=== PATIENT | female | born 1930 | race Caucasian/White ===

== ENCOUNTER → 2018-02-12 | Outpatient (CLI) | payer MEDICARE, OTHER ==
[2014-10-12 17:35] VITALS: BP 128/79
[~2018-02-12] MED LIST: ACET-10 PO; ACET325T21 PO; ALPR1TAB6 PO; CHOL100013 PO; CLOB15CR2 TP; CLON1TAB4 PO; CLOT15CR5 TP; CYAN10002 IM; DESO15OI3 TP; FLUO20CA8 PO; LEVO112T4 PO; LISI1TAB7 PO; MECL12.52 PO; METF500T5 PO; OMEP20TA63 PO; POTA10TA12 PO; PRAV20TA2 PO; TRAM50TA PO
[2018-02-12] MEDS: IOHEXOL 240 MG/ML 50ML VIAL. PO ONE (14:15)
[2018-02-12] MEDS: IOHEXOL 300 MG/ML 100ML VIAL. IV ONE (15:11)
--- NOTE | 2018-02-12 15:33 | RAD ---
CT of the abdomen and pelvis with IV and oral contrast 02/12/2018 INDICATION: Abdominal pain. History of diverticulitis. COMPARISON STUDY: CT of the abdomen and pelvis with contrast April 09, 2014. TECHNIQUE: Multidetector CT imaging of the abdomen and pelvis was obtained following the administration of IV and oral contrast. FINDINGS: Visualized lung bases demonstrate no acute abnormality. A large hiatal hernia is similar to comparison exam. Liver, gallbladder, and spleen are unremarkable. Adrenal glands are unremarkable. The pancreas is atrophic in appearance but otherwise unremarkable. The appearance is unchanged. Kidneys are unremarkable in appearance. No evidence of hydronephrosis or obstructive uropathy is seen. There is no evidence of bowel obstruction. Extensive diverticulosis involving the sigmoid colon and rectum is again seen. Diverticulosis involving the descending colon is again noted. Very minimal pericolonic inflammatory change appears to be present at the junction of the descending colon and sigmoid colon. A very mild diverticulitis could produce this appearance. What appears to be a appendiceal stump is seen. The bladder is unremarkable. Prior hysterectomy noted. No significant free fluid or free air is seen in the abdomen or pelvis. S-shaped scoliosis of the thoracolumbar spine is seen with associated degenerative changes. Chronic pubic rami and acetabular fractures noted on the left. IMPRESSION: 1. Very mild pericolonic inflammatory change at the junction of the descending colon sigmoid colon. Very mild acute diverticulitis can produce this appearance. 2. Large hiatal hernia CT DOSING PQRS STATEMENT: One or more of the following individualized dose reduction techniques were utilized for this examination: 1. Automated exposure control 2. Adjustment of the mA and/or kV according to patient size 3. Use of iterative reconstruction technique Electronically signed by: Diego Garcia MD (02/12/2018 3:30 PM) [facility]
== END | disposition home or self-care (01) ==
LOC: CT 13:59
PROVIDERS: ATTEND Family Medicine Geriatric Medicine
DX: K44.9 Diaphragmatic hernia without obstruction or gangrene (principal); M41.85 Other forms of scoliosis, thoracolumbar region; I10 Essential (primary) hypertension; E78.5 Hyperlipidemia, unspecified; E03.9 Hypothyroidism, unspecified; Z90.710 Acquired absence of both cervix and uterus
CPT/HCPCS: 74177; Q9966; Q9967

== ENCOUNTER 2018-07-15 22:00 | Inpatient (IN) | payer MEDICARE, OTHER ==
[~2018-07-15] VITALS: Ht 152.4 cm; Wt 70.4 kg
[~2018-07-15 22:00] MED LIST changes: +CLON1TAB11 PO; -CLON1TAB4 PO; +METF500T16 PO; -METF500T5 PO
[2018-07-15] MEDS ORDERED: IV NORMAL SALINE 1000ML BAG 1,000 ML IV ONE (22:30)
[2018-07-15] MEDS ORDERED: METOCLOPRAMIDE HCL 10 MG/2 ML VIAL. IV ONE (22:30)
[2018-07-15 22:52] LABS: CALCIUM 9.8 mg/dL (8.5-10.1); CREATININE 1.5 mg/dL (0.6-1.0); POTASSIUM 4.4 mmol/L (3.5-5.1)
[2018-07-15 22:57] LABS: ALBUMIN 3.5 g/dL (3.4-5.0); ALBUMIN/GLOBULIN RATIO 0.8 (1.0-1.7); TOTAL BILIRUBIN 0.3 mg/dL (0.2-1.0); TOTAL PROTEIN 7.8 g/dL (6.4-8.2)
[2018-07-15 23:09] LABS: BILIRUBIN,URINE SMALL (NEG); CLARITY,URINE CLEAR; NITRITE,URINE NEGATIVE (NEG); PROTEIN,URINE NEGATIVE (NEG-TRACE); UROBILINOGEN,URINE 0.2 mg/dL (0.2 mg/dL)
[2018-07-15 23:13] LABS: COLOR,URINE DK YELLOW
[2018-07-15 23:16] LABS: BACTERIA,URINE 0 /HPF (0-FEW); RBC,URINE OCC /HPF (0-2); WBC,URINE 0 /HPF (0-4)
[2018-07-15 23:17] LABS: HYALINE CASTS, URINE MODERATE /HPF
--- NOTE | 2018-07-15 23:40 | RAD ---
CT abdomen and pelvis without contrast PQRS statement: CT scans at this facility use dose reduction including either automated exposure control, iterative reconstructions, and /or weight based radiation dosing via mA and kV modification when appropriate to reduce radiation dose to as low as reasonably achievable. HISTORY: Vomiting, diarrhea. History of diverticulitis. COMPARISON: CT abdomen and pelvis February 12, 2018. TECHNIQUE: Helical noncontrast imaging of the abdomen and pelvis was acquired. Abdomen findings: Hiatal hernia of the upper stomach. There is abnormal fluid dilation of the stomach, duodenum and upper abdominal jejunum with relative transition point in the right midabdomen which could indicate a small bowel obstruction with mild collapse of the mid to distal small bowel. Appendix is not present could be surgically absent no pericecal inflammation evident. Scattered colonic diverticuli. Fatty pancreas. Mild prominence of the common bile duct, stable. Adrenals, spleen, liver and gallbladder are unremarkable. No abdominal fluid. Lumbar scoliosis and disc disease. Multilevel lumbar spinal canal stenoses. Tiny 1 mm left renal calculus. Right kidney is unremarkable. Pelvis findings: Old healed left pelvic fractures again noted. Bladder, rectum unremarkable. Hysterectomy. No pelvic fluid. IMPRESSION: 1. Small bowel obstruction transition point at the mid abdomen likely due to an adhesion. 2. Hilar hernia of the upper stomach. 3. Nonobstructing 1 mm left renal calculus. 4. Colonic diverticulosis without inflammatory change. Electronically signed by: Cam Narayan MD (07/15/2018 11:36 PM) [facility]
[2018-07-15 23:54] LABS: BASO % 0 % (0-3); EOS # 0.1 x10^3/uL (0.0-0.7); EOS % 1 % (0-3); HEMATOCRIT 32.7 % (36.0-47.0); HEMOGLOBIN 10.5 g/dL (12.0-15.5); LYMPH # 0.3 x10^3/uL (1.0-4.8); LYMPH % 3 % (24-48); MEAN CORPUSCULAR HEMOGLOBIN 29 pg (25-35); MEAN CORPUSCULAR HGB CONC 32 g/dL (31-37); MEAN CORPUSCULAR VOLUME 91 fL (79-100); MONO # 0.6 x10^3/uL (0.0-1.1); MONO % 6 % (0-9); NEUT # 9.2 x10^3uL (1.8-7.7); NEUT % 90 % (31-73); PLATELET COUNT 328 x10^3/uL (140-400); RED BLOOD COUNT 3.61 x10^6/uL (3.50-5.40); RED CELL DISTRIBUTION WIDTH 18.9 % (11.5-14.5); WHITE BLOOD COUNT 10.2 x10^3/uL (4.0-11.0)
[2018-07-16] VITALS (7 sets, daily range): BP systolic 83–118; BP diastolic 30–52
--- NOTE | 2018-07-16 00:48 | PHYS DOC ---
Past Medical History Past Medical History: Diabetes-Type II, Diverticulitis Past Surgical History: Hysterectomy Alcohol Use: None Adult General Chief Complaint Chief Complaint: NAUSEA/VOMITING/DIARRHA HPI HPI Patient is a 87 year old female who presents with a sudden onset of intractable nausea and vomiting this evening. The patient states that her symptoms started approximately 7 PM. She does have a history of diverticulitis. She denies fever. She does also have a history of an ileus that occurred approximately last October following a surgery. She denies any recent surgeries. Review of Systems Review of Systems Constitutional: Denies fever or chills [] Eyes: Denies change in visual acuity, redness, or eye pain [] HENT: Denies nasal congestion or sore throat [] Respiratory: Denies cough or shortness of breath [] Cardiovascular: No additional information not addressed in HPI [] GI: See history of present illness : Denies dysuria or hematuria [] Musculoskeletal: Denies back pain or joint pain [] Integument: Denies rash or skin lesions [] Neurologic: Denies headache, focal weakness or sensory changes [] Endocrine: Denies polyuria or polydipsia [] All other systems were reviewed and found to be within normal limits, except as documented in this note. Current Medications Current Medications Current Medications Medications (Trade) Dose Ordered Sig/Gabe Start Time Stop Time Status Last Admin Dose Admin Metoclopramide HCl (Reglan Vial) 10 mg 1X ONCE 07/15/18 22:30 07/15/18 22:31 DC 07/15/18 22:47 10 MG Sodium Chloride 1,000 ml @ 1,000 mls/hr 1X ONCE 07/15/18 22:30 07/15/18 23:29 DC 07/15/18 22:49 1,000 MLS/HR Allergies Allergies Allergies Coded Allergies Type Severity Reaction Last Updated Verified codeine Allergy Intermediate Itching 10/12/14 Yes Physical Exam Physical Exam Constitutional: Well developed, well nourished, no acute distress, non-toxic appearance. [] HENT: Normocephalic, atraumatic, bilateral external ears normal, oropharynx moist, no oral exudates, nose normal. [] Eyes: PERRLA, EOMI, conjunctiva normal, no discharge. [] Neck: Normal range of motion, no tenderness, supple, no stridor. [] Cardiovascular:Heart rate regular rhythm, no murmur [] Lungs & Thorax: Bilateral breath sounds clear to auscultation [] Abdomen: Bowel sounds hypoactive, soft, diffuse tenderness, no masses, no pulsatile masses. [] Skin: Warm, dry, no erythema, no rash. [] Back: No tenderness, no CVA tenderness. [] Extremities: No tenderness, no cyanosis, no clubbing, ROM intact, no edema. [] Neurologic: Alert and oriented X 3, normal motor function, normal sensory function, no focal deficits noted. [] Psychologic: Affect normal, judgement normal, mood normal. [] Current Patient Data Lab Values Laboratory Tests Test 07/15/18 22:35 07/15/18 22:55 07/15/18 23:40 Sodium Level 140 mmol/L (136-145) Potassium Level 4.4 mmol/L (3.5-5.1) Chloride Level 105 mmol/L (98-107) Carbon Dioxide Level 26 mmol/L (21-32) Anion Gap 9 (6-14) Blood Urea Nitrogen 42 mg/dL (7-20) H Creatinine 1.5 mg/dL (0.6-1.0) H Estimated GFR (Cockcroft-Gault) 33.0 BUN/Creatinine Ratio 28 (6-20) H Glucose Level 144 mg/dL (70-99) H Calcium Level 9.8 mg/dL (8.5-10.1) Total Bilirubin 0.3 mg/dL (0.2-1.0) Aspartate Amino Transferase (AST) 18 U/L (15-37) Alanine Aminotransferase (ALT) 23 U/L (14-59) Alkaline Phosphatase 113 U/L (46-116) Total Protein 7.8 g/dL (6.4-8.2) Albumin 3.5 g/dL (3.4-5.0) Albumin/Globulin Ratio 0.8 (1.0-1.7) L Urine Collection Type U cath Urine Color Dk yellow Urine Clarity Clear Urine pH 5.0 Urine Specific [place] >=1.030 Urine Protein Negative mg/dL (NEG-TRACE) Urine Glucose (UA) Negative mg/dL (NEG) Urine Ketones (Stick) Trace mg/dL (NEG) Urine Blood Negative (NEG) Urine Nitrite Negative (NEG) Urine Bilirubin Small (NEG) Urine Urobilinogen Dipstick 0.2 mg/dL (0.2 mg/dL) Urine Leukocyte Esterase Negative (NEG) Urine RBC Occ /HPF (0-2) Urine WBC 0 /HPF (0-4) Urine Transitional Epithelial Cells Occ /LPF Urine Bacteria 0 /HPF (0-FEW) Urine Hyaline Casts Moderate /HPF Urine Mucus Mod /LPF White Blood Count 10.2 x10^3/uL (4.0-11.0) Red Blood Count 3.61 x10^6/uL (3.50-5.40) Hemoglobin 10.5 g/dL (12.0-15.5) L Hematocrit 32.7 % (36.0-47.0) L Mean Corpuscular Volume 91 fL (79-100) Mean Corpuscular Hemoglobin 29 pg (25-35) Mean Corpuscular Hemoglobin Concent 32 g/dL (31-37) Red Cell Distribution Width 18.9 % (11.5-14.5) H Platelet Count 328 x10^3/uL (140-400) Neutrophils (%) (Auto) 90 % (31-73) H Lymphocytes (%) (Auto) 3 % (24-48) L Monocytes (%) (Auto) 6 % (0-9) Eosinophils (%) (Auto) 1 % (0-3) Basophils (%) (Auto) 0 % (0-3) Neutrophils # (Auto) 9.2 x10^3uL (1.8-7.7) H Lymphocytes # (Auto) 0.3 x10^3/uL (1.0-4.8) L Monocytes # (Auto) 0.6 x10^3/uL (0.0-1.1) Eosinophils # (Auto) 0.1 x10^3/uL (0.0-0.7) Basophils # (Auto) 0.0 x10^3/uL (0.0-0.2) Platelet Estimate Pending Laboratory Tests 07/15/18 23:40 Laboratory Tests 07/15/18 22:35 EKG EKG [] Radiology/Procedures Radiology/Procedures []PATIENT: HUSEYIN LAYCOUNT: [id number]#: [id number] : 1930 LOCATION: ER AGE: 87 SEX: F EXAM STATUS: REG ER ORD. PHYSICIAN: LUCINDA MONCADA APRN REASON: diarrhea, vomiting, hx diverticulitis PROCEDURE: CT ABDOMEN PELVIS WO CONTRAST CT abdomen and pelvis without contrast PQRS statement: CT scans at this facility use dose reduction including either automated exposure control, iterative reconstructions, and /or weight based radiation dosing via mA and kV modification when appropriate to reduce radiation dose to as low as reasonably achievable. HISTORY: Vomiting, diarrhea. History of diverticulitis. COMPARISON: CT abdomen and pelvis February 12, 2018. TECHNIQUE: Helical noncontrast imaging of the abdomen and pelvis was acquired. Abdomen findings: Hiatal hernia of the upper stomach. There is abnormal fluid dilation of the stomach, duodenum and upper abdominal jejunum with relative transition point in the right midabdomen which could indicate a small bowel obstruction with mild collapse of the mid to distal small bowel. Appendix is not present could be surgically absent no pericecal inflammation evident. Scattered colonic diverticuli. Fatty pancreas. Mild prominence of the common bile duct, stable. Adrenals, spleen, liver and gallbladder are unremarkable. No abdominal fluid. Lumbar scoliosis and disc disease. Multilevel lumbar spinal canal stenoses. Tiny 1 mm left renal calculus. Right kidney is unremarkable. Pelvis findings: Old healed left pelvic fractures again noted. Bladder, rectum unremarkable. Hysterectomy. No pelvic fluid. IMPRESSION: 1. Small bowel obstruction transition point at the mid abdomen likely due to an adhesion. 2. Hilar hernia of the upper stomach. 3. Nonobstructing 1 mm left renal calculus. 4. Colonic diverticulosis without inflammatory change. Electronically signed by: Antonio Narayan MD (07/15/2018 11:36 PM) [facility] DICTATED and SIGNED BY: ANTONIO NARAYAN MD DATE: 07/15/18 233 Course & Med Decision Making Course & Med Decision Making Pertinent Labs and Imaging studies reviewed. (See chart for details) []An NG tube is in place in the emergency department. The patient has been given Reglan and fluids in the emergency department and states that she is feeling better. She will be admitted to Dr. Carter's service. Dr. Valencia, with surgery, was consulted in the care of this patient. Dragon Disclaimer Dragon Disclaimer This electronic medical record was generated, in whole or in part, using a voice recognition dictation system. Departure Departure Impression: Primary Impression: Small bowel obstruction Disposition: ADMITTED INPATIENT Admitting Physician: Sunny Carter Condition: GOOD Referrals: JUANI GARIBAY APRN (PCP) LUCINDA MONCADA APRN Jul 16, 2018 00:48
[2018-07-16] MEDS ORDERED: ONDANSETRON PF 4 MG/2 ML VIAL. IV PRN (01:00)
[2018-07-16] MEDS ORDERED: fentaNYL PF VIAL 100 MCG/2 ML VIAL IV PRN (01:00)
[2018-07-16] MEDS ORDERED: BENZOCAINE ONE 20% MUCOSAL SPRAY. MM (02:30)
[2018-07-16] MEDS: IV NORMAL SALINE 1000ML BAG 1,000 ML IV SCH ×4 (04:00→19:56)
--- NOTE | 2018-07-16 04:00 | RAD ---
AP abdomen x-ray HISTORY: Nasogastric tube placement. FINDINGS: Lung bases unremarkable. Nasogastric tube tip in midthoracic esophagus region. Prominent gaseous distention of the stomach. Relatively gasless abdomen. Right flank outside the [id number]. Lumbar scoliosis. IMPRESSION: Nasogastric tube projects at the radiographic region of the mid thoracic esophagus, should be advanced the stomach. Advancement of the tube 20 cm should reach the stomach adequately. Electronically signed by: Cam Narayan MD (07/16/2018 3:55 AM) [facility]
[2018-07-16 05:17] LABS: % BANDS 15 % (0-9); % LYMPHS 5 % (24-48); % MONOS 3 % (0-10); % SEGS 77 % (35-66)
[2018-07-16 05:18] LABS: ANISOCYTOSIS SLIGHT; PLT ESTIMATE ADEQUATE (ADEQUATE); POLYCHROMASIA SLIGHT
[2018-07-16] MEDS ORDERED: TOLT2CAP PO (05:32)
[2018-07-16] MEDS ORDERED: RANI150T2 PO (05:32)
[2018-07-16] MEDS ORDERED: FERR325T3 PO (05:32)
[2018-07-16] MEDS ORDERED: ACET500T68 PO (05:32)
[2018-07-16] MEDS ORDERED: MULT-503 PO (05:32)
[2018-07-16] MEDS ORDERED: MELA3TAB2 PO (05:32)
[2018-07-16] MEDS ORDERED: MIRT15TA3 PO (05:32)
[2018-07-16] MEDS ORDERED: CLON0.5T11 PO ×2 (05:32)
[2018-07-16] MEDS ORDERED: LEVO100T5 PO (05:32)
--- NOTE | 2018-07-16 06:02 | NUR ---
DUE TO NG TUBE BEING PRESENT IN L NARE WAS ONLY ABLE TO OBTAIN MRSA SWAB FROM R NARE.
--- NOTE | 2018-07-16 06:03 | NUR ---
UPON ARRIVAL TO [facility] L NG TUBE WAS AT 32CM INSTEAD OF THE 44CM THAT WAS REPORTED FROM THE ER, CALLED TO VERIFY WITH ER THAT NG TUBE HAD NOT BEEN RE-ADJUSTED ON PURPOSE, ER HAD NOT MOVED NG TUBE ON PURPOSE, WAS TOLD TO RE-ADVANCE NG TUBE TO 44CM AND RECHECK KUB X-RAY TO VERIFY PLACEMENT. NG TUBE PLACED AND MARKED AT 44CM AND REINFORCED WITH NG CRAVEN ON NOSE IN THE L NARE. KUB RESULTS STILL NEED TO BE READ AT THIS TIME, WILL HOOK TO SUCTION ONCE VERIFICATION IS NOTED. Addendum: 07/16/18 at 0800 by NINO MENG RN ALSO UPON ARRIVAL NOTICED THAT NG TUBE WAS NOT SECURED TO NOSE VERY WELL AND WAS FREELY MOVING AROUND. PT HAD TAPE ON NOSE AND AROUND TUBE BUT WAS NOT SECURED TO THE TUBE, STICKY PART WAS NOT ATTACHED CORRECTLY.
--- NOTE | 2018-07-16 06:15 | RAD ---
AP abdomen x-ray COMPARISON: AP abdomen x-ray July 16, 2018. HISTORY: Nasogastric tube placement. FINDINGS: There is mild elevation of the left diaphragm and gas within the gastric fundus. Lung bases unremarkable. There is a nasogastric tube the tip of which projects just beneath the medial left diaphragm overlapping the gaseous distended gastric fundus as well as the aerated left lower lobe, based on this single projection it is uncertain if this is within the aerated portion of the gastric fundus or if this could be within the left lower lobe bronchus. Further advancement of the tube into the stomach for verification of gastric placement would be of benefit. IMPRESSION: Nasogastric tube as described above. These results were called to patient's fifth floor nurse Parris at 6:00 AM July 16, 2018. Electronically signed by: Cam Narayan MD (07/16/2018 6:10 AM) [facility]
--- NOTE | 2018-07-16 06:27 | NUR ---
RECEIVED CALL FROM RADIOLOGIST, SEE KUB REPORT, ADVANCED L NARE NG TUBE TO 50CM, REORDERED STAT KUB TO VERIFY PLACEMENT
--- NOTE | 2018-07-16 07:26 | RAD ---
Examination: Frontal view of the abdomen HISTORY: History of NG tube placement COMPARISON: Same day exam FINDINGS: The NG tube projects under moderately elevated left hemidiaphragm similar to prior exam. On this radiograph it is not possible to differentiate in the NG tube is within the stomach or in the left lower lobe bronchus. Paucity of gas in the abdomen limits evaluation of the small bowel. Lumbar levoscoliosis. IMPRESSION: The NG tube projects under moderately elevated left hemidiaphragm similar to prior exam. On this radiograph it is not possible to differentiate in the NG tube is within the stomach or in the left lower lobe bronchus. Recommend cross-sectional imaging with CT to determine if the NG tube is within the stomach or in the left lower lobe bronchus. Electronically signed by: Jose Luis Shin MD (07/16/2018 7:21 AM) [facility]
--- NOTE | 2018-07-16 07:51 | NUR ---
THIRD KUB WAS STILL INCONCLUSIVE ON PLACEMENT OF NG TUBE AT 50CM, DR. REYEZ NOTIFIED OF NOT BEING ABLE TO VERIFY PLACEMENT OF NG TUBE FOR THE THIRD TIME, HE STATED THAT HE WANTED TO SEE THE PATIENT THIS SMORNING BEFORE DECIDING ON PLACING ANOTHER NG TUBE.
[2018-07-16] MEDS: metroNIDAZOLE 500 MG TABLET PO SCH ×2 (11:00→22:00)
--- NOTE | 2018-07-16 11:09 | NUR ---
SW following for discharge planning. Discussed with RN, pt is from [facility]. Pt is waiting to see the surgeon. SW will continue to follow.
--- NOTE | 2018-07-16 11:10 | HP ---
ADMIT DATE: 07/16/2018 CHIEF COMPLAINT: Nausea, vomiting and abdominal pain. HISTORY OF PRESENT ILLNESS: The patient is a pleasant 87-year-old female who states she has a history of diverticulitis. She presented to the ER with abdominal pain, some nausea, vomiting and diarrhea that has been occurring for a couple of days, rated at 9/10, worse with food. She took some home meds that did not seem to work. She has some crampiness in the lower quadrants. We did imaging study of her abdomen. It shows a possible small-bowel obstruction. I have discussed the case with the ER physician. We are going to admit the patient and consult General Surgery and I am going to give her some IV Flagyl and Levaquin because I suspect she may have some colitis as well. PAST MEDICAL HISTORY: Previous diverticulitis and colitis, hypertension, hysterectomy, diabetes, insomnia, hyperlipidemia, arthritis, depression, anxiety, vertigo, GERD and hypothyroidism. ALLERGIES: CODEINE. FAMILY HISTORY: Coronary artery disease. SOCIAL HISTORY: She does not drink, smoke or take drugs. MEDICATIONS: Reviewed. She is on 19 home meds including iron, pravastatin, lisinopril, Ultram, Tylenol, clonazepam, fluoxetine, mirtazapine, potassium, meclizine, ranitidine, Synthroid, Detrol and vitamins. REVIEW OF SYSTEMS: GENERAL: No history of weight change, weakness or fevers. SKIN: No bruising, hair changes or rashes. EYES: No blurred, double or loss of vision. NOSE AND THROAT: No history of nosebleeds, hoarseness or sore throat. HEART: No history of palpitations, chest pain or shortness of breath on exertion. LUNGS: Denies cough, hemoptysis, wheezing or shortness of breath. GASTROINTESTINAL: She complains of lower abdominal pain. GENITOURINARY: No history of frequency, urgency, hesitancy or nocturia. NEUROLOGIC: Denies history of numbness, tingling, tremor or weakness. PSYCHIATRIC: No history of panic, anxiety or depression. ENDOCRINE: No history of heat or cold intolerance, polyuria or polydipsia. EXTREMITIES: Denies muscle weakness, joint pain, pain on walking or stiffness. PHYSICAL EXAMINATION: VITAL SIGNS: Temperature afebrile, pulse 80, respirations 18, blood pressure 106/52 and O2 sat 96%. GENERAL: She is alert, cooperative and complaining of some pain. HEART: Normal S1 and S2. LUNGS: Clear. ABDOMEN: Soft and tender in the lower quadrants. EXTREMITIES: Trace edema. SKIN: No rash. ENDOCRINE: No thyromegaly. LYMPHATICS: No cervical nodes. HEMATOPOIETIC: No bruising. PSYCHIATRIC: She is stable. LABORATORY DATA: Hemoglobin is 10.5. Electrolytes are normal other than a BUN of 42 and creatinine 1.5. Urinalysis is essentially normal other than a small amount of bilirubin and moderate hyaline cast. ASSESSMENT AND PLAN: Small bowel obstruction and clinical colitis, azotemia, acute renal failure and anemia. The patient has been admitted. I am starting IV Flagyl, IV Levaquin, consult GI, consult Nephrology, home meds, PT, OT and frequent labs. PROGNOSIS: Guarded. APRIL MEZA DO DR: KAILEY/charley JOB#: [id number] / [id number]
--- NOTE | 2018-07-16 12:18 | PDOC2 ---
DHEERAJ MOORE DIRECTOR OF CHANNEL MARKETING 07/16/18 1218: CONSULT Date of Consult Date of Consult DATE: 07/16/18 TIME: 12:12 Reason for Consult Reason for Consult: sbo Referring Physician Referring Physician: ER Identification/Chief Complaint Chief Complaint vomiting Source Source: Chart review, Patient History of Present Illness Reason for Visit: Acute onset vomiting and diarrhea yesterday. She does live in an assisted living. + chills at home. Currently pain minimal, no further emesis or diarrhea Past Medical History Cardiovascular: HTN, Hyperlipidemia GI: Diverticulosis, GERD Psych: Anxiety Musculoskeletal: Osteoarthritis Endocrine: Diabetes, Hypothyroidism Past Surgical History Past Surgical History: Hysterectomy, Other (meckel diverticulectomy ) Family History Family History: Other Social History No ALCOHOL: none Drugs: None Current Problem List Problem List Problems Medical Problems: (1) Small bowel obstruction Status: Acute Current Medications Current Medications Current Medications Sodium Chloride 1,000 ml @ 1,000 mls/hr 1X ONCE IV Last administered on at 22:49; Start 07/15/18 at 22:30; Stop 07/15/18 at 23:29; Status DC Metoclopramide HCl (Reglan Vial) 10 mg 1X ONCE IV Last administered on at 22:47; Start 07/15/18 at 22:30; Stop 07/15/18 at 22:31; Status DC Ondansetron HCl (Zofran) 4 mg PRN Q8HRS PRN IV NAUSEA/VOMITING 1ST CHOICE Last administered on 07/16/18at 02:17; Start 07/16/18 at 01:00; Stop 07/16/18 at 10:51; Status DC Fentanyl Citrate (Fentanyl 2ml Vial) 50 mcg PRN Q1HR PRN IV SEVERE PAIN; Start 07/16/18 at 01:00; Stop 07/17/18 at 00:59 Sodium Chloride 1,000 ml @ 125 mls/hr Q8H IV Last administered on 07/16/18at 04: 00; Start 07/16/18 at 01:00; Stop 07/17/18 at 00:59 Benzocaine (Hurricaine One) 1 spray 1X ONCE MM Last administered on 07/16/18at 01:58; Start 07/16/18 at 02:30; Stop 07/16/18 at 02:31; Status DC Metronidazole (Flagyl) 500 mg Q8HRS PO ; Start 07/16/18 at 11:00 Levofloxacin/ Dextrose 100 ml @ 100 mls/hr Q24H IV Last administered on at 12:04; Start 07/16/18 at 11:00 Active Scripts Active Reported Clonazepam 0.5 Mg Tablet 1 Tab PO DAILY PRN Detrol La (Tolterodine Tartrate) 2 Mg Cap.er.24h 2 Mg PO BID Thera-M (Multivits,Th W-Fe,Other Min) 1 Each Tablet 1 Each PO DAILY Ranitidine Hcl 150 Mg Tablet 150 Mg PO DAILY Mirtazapine 15 Mg Tablet 1 Tab PO QHS Melatonin 3 Mg Tablet 5 Mg PO HS Ferrous Sulfate 325 Mg Tablet.dr 325 Mg PO DAILY Clonazepam 0.5 Mg Tablet 1 Tab PO HS Acetaminophen 500 Mg Tablet 2 Tab PO BID Levothyroxine Sodium 100 Mcg Tablet 1 Tab PO DAILY Clonazepam 1 Mg Tablet 1 Tab PO DAILY Vitamin D (Cholecalciferol (Vitamin D3)) 1,000 Unit Capsule 1 Cap PO DAILY Potassium Chloride 10 Meq Capsule.er 1 Cap PO DAILY Lisinopril-Hctz 20-25 Mg Tab (Lisinopril/Hydrochlorothiazide) 1 Each Tablet 1 Tab PO DAILY Pravastatin Sodium 20 Mg Tablet 1 Tab PO QHS Fluoxetine Hcl 20 Mg Capsule 3 Cap PO HS Meclizine Hcl 12.5 Mg Tablet 1 Tab PO TID PRN Tramadol Hcl 50 Mg Tablet 50 Mg PO Q8HRS PRN Cyanocobalamin Injection (Cyanocobalamin (Vitamin B-12)) 1,000 Mcg/1 Ml Vial 1 Ml IM QMONTH Allergies Allergies: Coded Allergies: codeine (Verified Allergy, Intermediate, Itching, 10/12/14) ROS General: YES: Fatigue; No: Other (fevers) PSYCHOLOGICAL ROS: No: Anxiety, Depression Eyes: No Blurry vision, No Double vision HEENT: No: Heacaches, Sore Throat Hematological and Lymphatic: No: Bleeding Problems, Blood Clots Respiratory: No: Cough, Shortness of breath Cardiovascular: No Chest Pain, No Palpitations Gastrointestinal: Yes Other (see hpi) Genitourinary: No Dysuria, No Hematuria Musculoskeletal: No Joint Pain, No Muscle Pain Neurological: No Confusion, No Impaired Coord/balance Skin: No Pruritus, No Rash Physical Exam General: Alert, Oriented X3, Cooperative, No acute distress HEENT: PERRLA, Mucous membr. moist/pink Lungs: Clear to auscultation, Normal air movement Heart: Regular rate, Normal S1, Normal S2, No murmurs Abdomen: Soft, Other Extremities: No clubbing, No cyanosis Skin: No rashes, No breakdown Neuro: Normal speech, Strength at 5/5 X4 ext Psych/Mental Status: Mental status NL, Mood NL MUSCULOSKELETAL: No joint tenderness, No deformity Vitals VITALS Vital Signs Date Time Temp Pulse Resp B/P (MAP) Pulse Ox O2 Delivery O2 Flow Rate FiO2 07/16/18 11:00 97.8 80 18 110/50 (70) 97 Room Air 97.8 07/16/18 03:00 2.0 Labs Labs Laboratory Tests Test 07/15/18 22:35 07/15/18 22:55 07/15/18 23:40 Sodium Level 140 mmol/L (136-145) Potassium Level 4.4 mmol/L (3.5-5.1) Chloride Level 105 mmol/L (98-107) Carbon Dioxide Level 26 mmol/L (21-32) Anion Gap 9 (6-14) Blood Urea Nitrogen 42 mg/dL (7-20) Creatinine 1.5 mg/dL (0.6-1.0) Estimated GFR (Cockcroft-Gault) 33.0 BUN/Creatinine Ratio 28 (6-20) Glucose Level 144 mg/dL (70-99) Calcium Level 9.8 mg/dL (8.5-10.1) Total Bilirubin 0.3 mg/dL (0.2-1.0) Aspartate Amino Transf (AST/SGOT) 18 U/L (15-37) Alanine Aminotransferase (ALT/SGPT) 23 U/L (14-59) Alkaline Phosphatase 113 U/L (46-116) Total Protein 7.8 g/dL (6.4-8.2) Albumin 3.5 g/dL (3.4-5.0) Albumin/Globulin Ratio 0.8 (1.0-1.7) Urine Collection Type U cath Urine Color Dk yellow Urine Clarity Clear Urine pH 5.0 Urine Specific [place] >=1.030 Urine Protein Negative mg/dL (NEG-TRACE) Urine Glucose (UA) Negative mg/dL (NEG) Urine Ketones (Stick) Trace mg/dL (NEG) Urine Blood Negative (NEG) Urine Nitrite Negative (NEG) Urine Bilirubin Small (NEG) Urine Urobilinogen Dipstick 0.2 mg/dL (0.2 mg/dL) Urine Leukocyte Esterase Negative (NEG) Urine RBC Occ /HPF (0-2) Urine WBC 0 /HPF (0-4) Urine Transitional Epithelial Cells Occ /LPF Urine Bacteria 0 /HPF (0-FEW) Urine Hyaline Casts Moderate /HPF Urine Mucus Mod /LPF White Blood Count 10.2 x10^3/uL (4.0-11.0) Red Blood Count 3.61 x10^6/uL (3.50-5.40) Hemoglobin 10.5 g/dL (12.0-15.5) Hematocrit 32.7 % (36.0-47.0) Mean Corpuscular Volume 91 fL (79-100) Mean Corpuscular Hemoglobin 29 pg (25-35) Mean Corpuscular Hemoglobin Concent 32 g/dL (31-37) Red Cell Distribution Width 18.9 % (11.5-14.5) Platelet Count 328 x10^3/uL (140-400) Neutrophils (%) (Auto) 90 % (31-73) Lymphocytes (%) (Auto) 3 % (24-48) Monocytes (%) (Auto) 6 % (0-9) Eosinophils (%) (Auto) 1 % (0-3) Basophils (%) (Auto) 0 % (0-3) Neutrophils # (Auto) 9.2 x10^3uL (1.8-7.7) Lymphocytes # (Auto) 0.3 x10^3/uL (1.0-4.8) Monocytes # (Auto) 0.6 x10^3/uL (0.0-1.1) Eosinophils # (Auto) 0.1 x10^3/uL (0.0-0.7) Basophils # (Auto) 0.0 x10^3/uL (0.0-0.2) Segmented Neutrophils % 77 % (35-66) Band Neutrophils % 15 % (0-9) Lymphocytes % 5 % (24-48) Monocytes % 3 % (0-10) Platelet Estimate Adequate (ADEQUATE) Polychromasia Slight Anisocytosis Slight Laboratory Tests Test 07/15/18 22:35 07/15/18 22:55 07/15/18 23:40 Sodium Level 140 mmol/L (136-145) Potassium Level 4.4 mmol/L (3.5-5.1) Chloride Level 105 mmol/L (98-107) Carbon Dioxide Level 26 mmol/L (21-32) Anion Gap 9 (6-14) Blood Urea Nitrogen 42 mg/dL (7-20) Creatinine 1.5 mg/dL (0.6-1.0) Estimated GFR (Cockcroft-Gault) 33.0 BUN/Creatinine Ratio 28 (6-20) Glucose Level 144 mg/dL (70-99) Calcium Level 9.8 mg/dL (8.5-10.1) Total Bilirubin 0.3 mg/dL (0.2-1.0) Aspartate Amino Transf (AST/SGOT) 18 U/L (15-37) Alanine Aminotransferase (ALT/SGPT) 23 U/L (14-59) Alkaline Phosphatase 113 U/L (46-116) Total Protein 7.8 g/dL (6.4-8.2) Albumin 3.5 g/dL (3.4-5.0) Albumin/Globulin Ratio 0.8 (1.0-1.7) Urine Collection Type U cath Urine Color Dk yellow Urine Clarity Clear Urine pH 5.0 Urine Specific [place] >=1.030 Urine Protein Negative mg/dL (NEG-TRACE) Urine Glucose (UA) Negative mg/dL (NEG) Urine Ketones (Stick) Trace mg/dL (NEG) Urine Blood Negative (NEG) Urine Nitrite Negative (NEG) Urine Bilirubin Small (NEG) Urine Urobilinogen Dipstick 0.2 mg/dL (0.2 mg/dL) Urine Leukocyte Esterase Negative (NEG) Urine RBC Occ /HPF (0-2) Urine WBC 0 /HPF (0-4) Urine Transitional Epithelial Cells Occ /LPF Urine Bacteria 0 /HPF (0-FEW) Urine Hyaline Casts Moderate /HPF Urine Mucus Mod /LPF White Blood Count 10.2 x10^3/uL (4.0-11.0) Red Blood Count 3.61 x10^6/uL (3.50-5.40) Hemoglobin 10.5 g/dL (12.0-15.5) Hematocrit 32.7 % (36.0-47.0) Mean Corpuscular Volume 91 fL (79-100) Mean Corpuscular Hemoglobin 29 pg (25-35) Mean Corpuscular Hemoglobin Concent 32 g/dL (31-37) Red Cell Distribution Width 18.9 % (11.5-14.5) Platelet Count 328 x10^3/uL (140-400) Neutrophils (%) (Auto) 90 % (31-73) Lymphocytes (%) (Auto) 3 % (24-48) Monocytes (%) (Auto) 6 % (0-9) Eosinophils (%) (Auto) 1 % (0-3) Basophils (%) (Auto) 0 % (0-3) Neutrophils # (Auto) 9.2 x10^3uL (1.8-7.7) Lymphocytes # (Auto) 0.3 x10^3/uL (1.0-4.8) Monocytes # (Auto) 0.6 x10^3/uL (0.0-1.1) Eosinophils # (Auto) 0.1 x10^3/uL (0.0-0.7) Basophils # (Auto) 0.0 x10^3/uL (0.0-0.2) Segmented Neutrophils % 77 % (35-66) Band Neutrophils % 15 % (0-9) Lymphocytes % 5 % (24-48) Monocytes % 3 % (0-10) Platelet Estimate Adequate (ADEQUATE) Polychromasia Slight Anisocytosis Slight Assessment/Plan Assessment/Plan abd pain, vomiting, diarrhea appears more c/w gastroenteritis bowel rest, hydration, will check plain films in AM WINSTON REYEZ MD 07/16/18 1250: CONSULT Assessment/Plan Assessment/Plan pt seen, interviewed and examined agree with above Dr Payne and Dheeraj Moore to follow over the weekend Thanks for consult DHEERAJ MOORE APRN Jul 16, 2018 12:18 WINSTON REYEZ MD Jul 16, 2018 12:50
--- NOTE | 2018-07-16 13:37 | PDOC2 ---
CONSULT Date of Consult Date of Consult DATE: 07/16/18 TIME: 13:26 Reason for Consult Reason for Consult: Renal failure Identification/Chief Complaint Chief Complaint N/V Source Source: Chart review, Patient History of Present Illness Reason for Visit: Patient is a 87 year old C female who presented to ER with a sudden onset of intractable nausea and vomiting last evening . She reports her symptoms started approximately 7 PM. She does have a history of diverticulitis. She also have a history of an ileus last October following a surgery. C/O LOwer abdominal pain. She denies fever, chills .She denies any recent surgeries. Denies any CP, SOB.denies symptoms of UTI , reports voided x 1 since this am Thinks takes 1 Ibuprofen/day , No other OTC meds/supplements Currently reports feels ok Past Medical History Cardiovascular: HTN, Hyperlipidemia GI: Diverticulosis, GERD Psych: Anxiety Musculoskeletal: Osteoarthritis Endocrine: Diabetes, Hypothyroidism Past Surgical History Past Surgical History: Hysterectomy, Other (meckel diverticulectomy ) Family History Family History: Other Social History No ALCOHOL: none Drugs: None Current Problem List Problem List Problems Medical Problems: (1) Small bowel obstruction Status: Acute Current Medications Current Medications Current Medications Sodium Chloride 1,000 ml @ 1,000 mls/hr 1X ONCE IV Last administered on at 22:49; Start 07/15/18 at 22:30; Stop 07/15/18 at 23:29; Status DC Metoclopramide HCl (Reglan Vial) 10 mg 1X ONCE IV Last administered on at 22:47; Start 07/15/18 at 22:30; Stop 07/15/18 at 22:31; Status DC Ondansetron HCl (Zofran) 4 mg PRN Q8HRS PRN IV NAUSEA/VOMITING 1ST CHOICE Last administered on 07/16/18at 02:17; Start 07/16/18 at 01:00; Stop 07/16/18 at 10:51; Status DC Fentanyl Citrate (Fentanyl 2ml Vial) 50 mcg PRN Q1HR PRN IV SEVERE PAIN; Start 07/16/18 at 01:00; Stop 07/17/18 at 00:59 Sodium Chloride 1,000 ml @ 125 mls/hr Q8H IV Last administered on 07/16/18at 04: 00; Start 07/16/18 at 01:00; Stop 07/17/18 at 00:59 Benzocaine (Hurricaine One) 1 spray 1X ONCE MM Last administered on 07/16/18at 01:58; Start 07/16/18 at 02:30; Stop 07/16/18 at 02:31; Status DC Metronidazole (Flagyl) 500 mg Q8HRS PO ; Start 07/16/18 at 11:00 Levofloxacin/ Dextrose 100 ml @ 100 mls/hr Q24H IV Last administered on at 12:04; Start 07/16/18 at 11:00 Active Scripts Active Reported Clonazepam 0.5 Mg Tablet 1 Tab PO DAILY PRN Detrol La (Tolterodine Tartrate) 2 Mg Cap.er.24h 2 Mg PO BID Thera-M (Multivits, W-Fe,Other Min) 1 Each Tablet 1 Each PO DAILY Ranitidine Hcl 150 Mg Tablet 150 Mg PO DAILY Mirtazapine 15 Mg Tablet 1 Tab PO QHS Melatonin 3 Mg Tablet 5 Mg PO HS Ferrous Sulfate 325 Mg Tablet.dr 325 Mg PO DAILY Clonazepam 0.5 Mg Tablet 1 Tab PO HS Acetaminophen 500 Mg Tablet 2 Tab PO BID Levothyroxine Sodium 100 Mcg Tablet 1 Tab PO DAILY Clonazepam 1 Mg Tablet 1 Tab PO DAILY Vitamin D (Cholecalciferol (Vitamin D3)) 1,000 Unit Capsule 1 Cap PO DAILY Potassium Chloride 10 Meq Capsule.er 1 Cap PO DAILY Lisinopril-Hctz 20-25 Mg Tab (Lisinopril/Hydrochlorothiazide) 1 Each Tablet 1 Tab PO DAILY Pravastatin Sodium 20 Mg Tablet 1 Tab PO QHS Fluoxetine Hcl 20 Mg Capsule 3 Cap PO HS Meclizine Hcl 12.5 Mg Tablet 1 Tab PO TID PRN Tramadol Hcl 50 Mg Tablet 50 Mg PO Q8HRS PRN Cyanocobalamin Injection (Cyanocobalamin (Vitamin B-12)) 1,000 Mcg/1 Ml Vial 1 Ml IM QMONTH Allergies Allergies: Coded Allergies: codeine (Verified Allergy, Intermediate, Itching, 10/12/14) ROS Review of System As per HPI Physical Exam Physical Exam GENERAL: NAD HEENT- OM Dry NECK - supple HEART: Normal S1 and S2. LUNGS: Clear, No labored ABDOMEN: Soft and tender in the lower quadrants. EXTREMITIES: Trace edema. SKIN: No rash. NEURO- AX O - No ramirez, No CVA or SP tenderness Vital Signs Vital Signs Date Time Temp Pulse Resp B/P (MAP) Pulse Ox O2 Delivery O2 Flow Rate FiO2 07/16/18 11:00 97.8 80 18 110/50 (70) 97 Room Air 97.8 07/16/18 03:00 2.0 Assessment & Plan ROBERT- Pre-renal /dehydration ,?Hx of NSAID's Sec to N/V baseline Unavailable, basline Cr in 2013 1.1 E-Lytes and acid base stable, CT Kidneys and UA unremarkable IVF, Bladder scan PVR if Uop inadequate Abdominal pain/N/V- GS consulted Nephrolithiasis- Nonobstructing 1 mm left renal calculus on CT Asymptomatic Discussed a/p with pt Labs Labs Laboratory Tests Test 07/15/18 22:35 07/15/18 22:55 07/15/18 23:40 Sodium Level 140 mmol/L (136-145) Potassium Level 4.4 mmol/L (3.5-5.1) Chloride Level 105 mmol/L (98-107) Carbon Dioxide Level 26 mmol/L (21-32) Anion Gap 9 (6-14) Blood Urea Nitrogen 42 mg/dL (7-20) Creatinine 1.5 mg/dL (0.6-1.0) Estimated GFR (Cockcroft-Gault) 33.0 BUN/Creatinine Ratio 28 (6-20) Glucose Level 144 mg/dL (70-99) Calcium Level 9.8 mg/dL (8.5-10.1) Total Bilirubin 0.3 mg/dL (0.2-1.0) Aspartate Amino Transf (AST/SGOT) 18 U/L (15-37) Alanine Aminotransferase (ALT/SGPT) 23 U/L (14-59) Alkaline Phosphatase 113 U/L (46-116) Total Protein 7.8 g/dL (6.4-8.2) Albumin 3.5 g/dL (3.4-5.0) Albumin/Globulin Ratio 0.8 (1.0-1.7) Urine Collection Type U cath Urine Color Dk yellow Urine Clarity Clear Urine pH 5.0 Urine Specific [place] >=1.030 Urine Protein Negative mg/dL (NEG-TRACE) Urine Glucose (UA) Negative mg/dL (NEG) Urine Ketones (Stick) Trace mg/dL (NEG) Urine Blood Negative (NEG) Urine Nitrite Negative (NEG) Urine Bilirubin Small (NEG) Urine Urobilinogen Dipstick 0.2 mg/dL (0.2 mg/dL) Urine Leukocyte Esterase Negative (NEG) Urine RBC Occ /HPF (0-2) Urine WBC 0 /HPF (0-4) Urine Transitional Epithelial Cells Occ /LPF Urine Bacteria 0 /HPF (0-FEW) Urine Hyaline Casts Moderate /HPF Urine Mucus Mod /LPF White Blood Count 10.2 x10^3/uL (4.0-11.0) Red Blood Count 3.61 x10^6/uL (3.50-5.40) Hemoglobin 10.5 g/dL (12.0-15.5) Hematocrit 32.7 % (36.0-47.0) Mean Corpuscular Volume 91 fL (79-100) Mean Corpuscular Hemoglobin 29 pg (25-35) Mean Corpuscular Hemoglobin Concent 32 g/dL (31-37) Red Cell Distribution Width 18.9 % (11.5-14.5) Platelet Count 328 x10^3/uL (140-400) Neutrophils (%) (Auto) 90 % (31-73) Lymphocytes (%) (Auto) 3 % (24-48) Monocytes (%) (Auto) 6 % (0-9) Eosinophils (%) (Auto) 1 % (0-3) Basophils (%) (Auto) 0 % (0-3) Neutrophils # (Auto) 9.2 x10^3uL (1.8-7.7) Lymphocytes # (Auto) 0.3 x10^3/uL (1.0-4.8) Monocytes # (Auto) 0.6 x10^3/uL (0.0-1.1) Eosinophils # (Auto) 0.1 x10^3/uL (0.0-0.7) Basophils # (Auto) 0.0 x10^3/uL (0.0-0.2) Segmented Neutrophils % 77 % (35-66) Band Neutrophils % 15 % (0-9) Lymphocytes % 5 % (24-48) Monocytes % 3 % (0-10) Platelet Estimate Adequate (ADEQUATE) Polychromasia Slight Anisocytosis Slight Laboratory Tests Test 07/15/18 22:35 07/15/18 22:55 07/15/18 23:40 Sodium Level 140 mmol/L (136-145) Potassium Level 4.4 mmol/L (3.5-5.1) Chloride Level 105 mmol/L (98-107) Carbon Dioxide Level 26 mmol/L (21-32) Anion Gap 9 (6-14) Blood Urea Nitrogen 42 mg/dL (7-20) Creatinine 1.5 mg/dL (0.6-1.0) Estimated GFR (Cockcroft-Gault) 33.0 BUN/Creatinine Ratio 28 (6-20) Glucose Level 144 mg/dL (70-99) Calcium Level 9.8 mg/dL (8.5-10.1) Total Bilirubin 0.3 mg/dL (0.2-1.0) Aspartate Amino Transf (AST/SGOT) 18 U/L (15-37) Alanine Aminotransferase (ALT/SGPT) 23 U/L (14-59) Alkaline Phosphatase 113 U/L (46-116) Total Protein 7.8 g/dL (6.4-8.2) Albumin 3.5 g/dL (3.4-5.0) Albumin/Globulin Ratio 0.8 (1.0-1.7) Urine Collection Type U cath Urine Color Dk yellow Urine Clarity Clear Urine pH 5.0 Urine Specific [place] >=1.030 Urine Protein Negative mg/dL (NEG-TRACE) Urine Glucose (UA) Negative mg/dL (NEG) Urine Ketones (Stick) Trace mg/dL (NEG) Urine Blood Negative (NEG) Urine Nitrite Negative (NEG) Urine Bilirubin Small (NEG) Urine Urobilinogen Dipstick 0.2 mg/dL (0.2 mg/dL) Urine Leukocyte Esterase Negative (NEG) Urine RBC Occ /HPF (0-2) Urine WBC 0 /HPF (0-4) Urine Transitional Epithelial Cells Occ /LPF Urine Bacteria 0 /HPF (0-FEW) Urine Hyaline Casts Moderate /HPF Urine Mucus Mod /LPF White Blood Count 10.2 x10^3/uL (4.0-11.0) Red Blood Count 3.61 x10^6/uL (3.50-5.40) Hemoglobin 10.5 g/dL (12.0-15.5) Hematocrit 32.7 % (36.0-47.0) Mean Corpuscular Volume 91 fL (79-100) Mean Corpuscular Hemoglobin 29 pg (25-35) Mean Corpuscular Hemoglobin Concent 32 g/dL (31-37) Red Cell Distribution Width 18.9 % (11.5-14.5) Platelet Count 328 x10^3/uL (140-400) Neutrophils (%) (Auto) 90 % (31-73) Lymphocytes (%) (Auto) 3 % (24-48) Monocytes (%) (Auto) 6 % (0-9) Eosinophils (%) (Auto) 1 % (0-3) Basophils (%) (Auto) 0 % (0-3) Neutrophils # (Auto) 9.2 x10^3uL (1.8-7.7) Lymphocytes # (Auto) 0.3 x10^3/uL (1.0-4.8) Monocytes # (Auto) 0.6 x10^3/uL (0.0-1.1) Eosinophils # (Auto) 0.1 x10^3/uL (0.0-0.7) Basophils # (Auto) 0.0 x10^3/uL (0.0-0.2) Segmented Neutrophils % 77 % (35-66) Band Neutrophils % 15 % (0-9) Lymphocytes % 5 % (24-48) Monocytes % 3 % (0-10) Platelet Estimate Adequate (ADEQUATE) Polychromasia Slight Anisocytosis Slight Review All relevant outside records, renal labs, imaging studies, telemetry/EKG's were reviewed. Images Images CT scan abdomen-- 1. Small bowel obstruction transition point at the mid abdomen likely due to an adhesion. 2. Hilar hernia of the upper stomach. 3. Nonobstructing 1 mm left renal calculus. 4. Colonic diverticulosis without inflammatory change. RAN PRICE MD Jul 16, 2018 13:37
--- NOTE | 2018-07-16 14:06 | RAD ---
EXAM: Abdomen acute complete. HISTORY: Small bowel traction or ileus. COMPARISON: 07/15/2018 FINDINGS: A frontal view the chest and frontal upright and supine views of abdomen are obtained. There is a large hiatal hernia with intrathoracic positioning of the portion of the stomach. There is stable mild diffuse increased interstitial opacity. The heart is normal in size. There is no pleural effusion or pneumothorax. There is suspected linear left mid thorax atelectasis or scarring. There are air-filled loops of small bowel within the midabdomen. The degree of small bowel distention appears decreased compared to the recent CT. No clear transition point is seen. There is no free air. There is thoracolumbar scoliosis. There are healing or healed left pubic rami fractures. IMPRESSION: 1. Decrease in distended air-filled bowel within the midabdomen. 2. Suspected left mid thorax atelectasis or scarring. 3. Hiatal hernia. Electronically signed by: Haven Patterson MD (07/16/2018 2:02 PM) [id number]
[2018-07-16] MEDS: ONDANSETRON PF 4 MG/2 ML VIAL. IV PRN (19:53)
--- NOTE | 2018-07-16 22:19 | NUR ---
NURSING NOTE Dr. Payne called and notified that pt has been nauseated and vomiting small amounts of bilious emesis and no NG. Dr doesn't want to attempt another NG at this time d/t reported difficulty of insertion, but did add additional nausea medication. Will monitor pt.
[2018-07-16] MEDS ORDERED: PROCHLORPERAZINE 10 MG/2 ML VIAL. IV PRN (22:30)
[2018-07-17] MEDS: IV NORMAL SALINE 1000ML BAG 1,000 ML IV SCH ×3 (00:28→19:39)
[2018-07-17] MEDS: metroNIDAZOLE 500 MG TABLET PO SCH (01:50)
[2018-07-17 03:59] VITALS: BP 110/53
[2018-07-17] MEDS: ONDANSETRON PF 4 MG/2 ML VIAL. IV PRN (04:02)
--- NOTE | 2018-07-17 04:56 | NUR ---
NURSING NOTE Pt reports that she did pass some gas. Pt also states her nausea feels slightly better after passing gas and receiving zofran. Will monitor.
[2018-07-17 05:58] LABS: BASO % 0 % (0-3); EOS % 0 % (0-3); HEMATOCRIT 25.2 % (36.0-47.0); HEMOGLOBIN 8.3 g/dL (12.0-15.5); LYMPH # 0.5 x10^3/uL (1.0-4.8); LYMPH % 9 % (24-48); MEAN CORPUSCULAR HEMOGLOBIN 30 pg (25-35); MEAN CORPUSCULAR HGB CONC 33 g/dL (31-37); MEAN CORPUSCULAR VOLUME 93 fL (79-100); MONO # 0.6 x10^3/uL (0.0-1.1); MONO % 10 % (0-9); NEUT % 81 % (31-73); PLATELET COUNT 231 x10^3/uL (140-400); RED BLOOD COUNT 2.72 x10^6/uL (3.50-5.40); RED CELL DISTRIBUTION WIDTH 19.6 % (11.5-14.5); WHITE BLOOD COUNT 6.2 x10^3/uL (4.0-11.0)
[2018-07-17 06:11] LABS: CREATININE 1.3 mg/dL (0.6-1.0); GFR 38.9; POTASSIUM 4.2 mmol/L (3.5-5.1)
[2018-07-17 07:39] VITALS: BP 128/54
--- NOTE | 2018-07-17 09:16 | PDOC ---
DHEERAJ MARTIN ARMHOLE SEWER 07/17/18 0916: SURGICAL PROGRESS NOTE Subjective feels weak/tired no significant abdominal pain some emesis last night + flatus today no stool Vital Signs Vital Signs Date Time Temp Pulse Resp B/P (MAP) Pulse Ox O2 Delivery O2 Flow Rate FiO2 07/17/18 07:39 98.0 69 17 128/54 (78) 95 Nasal Cannula 2.0 98.0 I&O Intake and Output 07/17/18 07:01 Intake Total 1500 ml Output Total 400 ml Balance 1100 ml IV Total 1500 ml Output Urine Total 300 ml Emesis 100 ml # Voids 2 General: Alert, Oriented X3, Cooperative, No acute distress Abdomen: Soft, No tenderness, Other (ND) Labs Laboratory Tests Test 07/15/18 22:35 07/15/18 22:55 07/15/18 23:40 07/16/18 06:00 Sodium Level 140 mmol/L (136-145) Potassium Level 4.4 mmol/L (3.5-5.1) Chloride Level 105 mmol/L (98-107) Carbon Dioxide Level 26 mmol/L (21-32) Anion Gap 9 (6-14) Blood Urea Nitrogen 42 mg/dL (7-20) Creatinine 1.5 mg/dL (0.6-1.0) Estimated GFR (Cockcroft-Gault) 33.0 BUN/Creatinine Ratio 28 (6-20) Glucose Level 144 mg/dL (70-99) Calcium Level 9.8 mg/dL (8.5-10.1) Total Bilirubin 0.3 mg/dL (0.2-1.0) Aspartate Amino Transf (AST/SGOT) 18 U/L (15-37) Alanine Aminotransferase (ALT/SGPT) 23 U/L (14-59) Alkaline Phosphatase 113 U/L (46-116) Total Protein 7.8 g/dL (6.4-8.2) Albumin 3.5 g/dL (3.4-5.0) Albumin/Globulin Ratio 0.8 (1.0-1.7) Urine Collection Type U cath Urine Color Dk yellow Urine Clarity Clear Urine pH 5.0 Urine Specific [place] >=1.030 Urine Protein Negative mg/dL (NEG-TRACE) Urine Glucose (UA) Negative mg/dL (NEG) Urine Ketones (Stick) Trace mg/dL (NEG) Urine Blood Negative (NEG) Urine Nitrite Negative (NEG) Urine Bilirubin Small (NEG) Urine Urobilinogen Dipstick 0.2 mg/dL (0.2 mg/dL) Urine Leukocyte Esterase Negative (NEG) Urine RBC Occ /HPF (0-2) Urine WBC 0 /HPF (0-4) Urine Transitional Epithelial Cells Occ /LPF Urine Bacteria 0 /HPF (0-FEW) Urine Hyaline Casts Moderate /HPF Urine Mucus Mod /LPF White Blood Count 10.2 x10^3/uL (4.0-11.0) Red Blood Count 3.61 x10^6/uL (3.50-5.40) Hemoglobin 10.5 g/dL (12.0-15.5) Hematocrit 32.7 % (36.0-47.0) Mean Corpuscular Volume 91 fL (79-100) Mean Corpuscular Hemoglobin 29 pg (25-35) Mean Corpuscular Hemoglobin Concent 32 g/dL (31-37) Red Cell Distribution Width 18.9 % (11.5-14.5) Platelet Count 328 x10^3/uL (140-400) Neutrophils (%) (Auto) 90 % (31-73) Lymphocytes (%) (Auto) 3 % (24-48) Monocytes (%) (Auto) 6 % (0-9) Eosinophils (%) (Auto) 1 % (0-3) Basophils (%) (Auto) 0 % (0-3) Neutrophils # (Auto) 9.2 x10^3uL (1.8-7.7) Lymphocytes # (Auto) 0.3 x10^3/uL (1.0-4.8) Monocytes # (Auto) 0.6 x10^3/uL (0.0-1.1) Eosinophils # (Auto) 0.1 x10^3/uL (0.0-0.7) Basophils # (Auto) 0.0 x10^3/uL (0.0-0.2) Segmented Neutrophils % 77 % (35-66) Band Neutrophils % 15 % (0-9) Lymphocytes % 5 % (24-48) Monocytes % 3 % (0-10) Platelet Estimate Adequate (ADEQUATE) Polychromasia Slight Anisocytosis Slight Nasal Screen MRSA (PCR) Negative (Negative) Test 07/17/18 05:30 White Blood Count 6.2 x10^3/uL (4.0-11.0) Red Blood Count 2.72 x10^6/uL (3.50-5.40) Hemoglobin 8.3 g/dL (12.0-15.5) Hematocrit 25.2 % (36.0-47.0) Mean Corpuscular Volume 93 fL (79-100) Mean Corpuscular Hemoglobin 30 pg (25-35) Mean Corpuscular Hemoglobin Concent 33 g/dL (31-37) Red Cell Distribution Width 19.6 % (11.5-14.5) Platelet Count 231 x10^3/uL (140-400) Neutrophils (%) (Auto) 81 % (31-73) Lymphocytes (%) (Auto) 9 % (24-48) Monocytes (%) (Auto) 10 % (0-9) Eosinophils (%) (Auto) 0 % (0-3) Basophils (%) (Auto) 0 % (0-3) Neutrophils # (Auto) 5.0 x10^3uL (1.8-7.7) Lymphocytes # (Auto) 0.5 x10^3/uL (1.0-4.8) Monocytes # (Auto) 0.6 x10^3/uL (0.0-1.1) Eosinophils # (Auto) 0.0 x10^3/uL (0.0-0.7) Basophils # (Auto) 0.0 x10^3/uL (0.0-0.2) Sodium Level 145 mmol/L (136-145) Potassium Level 4.2 mmol/L (3.5-5.1) Chloride Level 112 mmol/L (98-107) Carbon Dioxide Level 27 mmol/L (21-32) Anion Gap 6 (6-14) Blood Urea Nitrogen 43 mg/dL (7-20) Creatinine 1.3 mg/dL (0.6-1.0) Estimated GFR (Cockcroft-Gault) 38.9 Glucose Level 112 mg/dL (70-99) Calcium Level 8.0 mg/dL (8.5-10.1) Laboratory Tests Test 07/17/18 05:30 White Blood Count 6.2 x10^3/uL (4.0-11.0) Red Blood Count 2.72 x10^6/uL (3.50-5.40) Hemoglobin 8.3 g/dL (12.0-15.5) Hematocrit 25.2 % (36.0-47.0) Mean Corpuscular Volume 93 fL (79-100) Mean Corpuscular Hemoglobin 30 pg (25-35) Mean Corpuscular Hemoglobin Concent 33 g/dL (31-37) Red Cell Distribution Width 19.6 % (11.5-14.5) Platelet Count 231 x10^3/uL (140-400) Neutrophils (%) (Auto) 81 % (31-73) Lymphocytes (%) (Auto) 9 % (24-48) Monocytes (%) (Auto) 10 % (0-9) Eosinophils (%) (Auto) 0 % (0-3) Basophils (%) (Auto) 0 % (0-3) Neutrophils # (Auto) 5.0 x10^3uL (1.8-7.7) Lymphocytes # (Auto) 0.5 x10^3/uL (1.0-4.8) Monocytes # (Auto) 0.6 x10^3/uL (0.0-1.1) Eosinophils # (Auto) 0.0 x10^3/uL (0.0-0.7) Basophils # (Auto) 0.0 x10^3/uL (0.0-0.2) Sodium Level 145 mmol/L (136-145) Potassium Level 4.2 mmol/L (3.5-5.1) Chloride Level 112 mmol/L (98-107) Carbon Dioxide Level 27 mmol/L (21-32) Anion Gap 6 (6-14) Blood Urea Nitrogen 43 mg/dL (7-20) Creatinine 1.3 mg/dL (0.6-1.0) Estimated GFR (Cockcroft-Gault) 38.9 Glucose Level 112 mg/dL (70-99) Calcium Level 8.0 mg/dL (8.5-10.1) Problem List Problems Medical Problems: (1) Small bowel obstruction Status: Acute Assessment/Plan sbo vs ileus, gastroenteritis bowel rest, will FU films today yesterdays were improved CHECO RIZVI MD 07/17/18 1057: SURGICAL PROGRESS NOTE Assessment/Plan Patient seen and examined. Agree with Jalil assessment and plan we'll follow up on abdominal films as she improves well advanced diet DHEERAJ MARTIN APRN Jul 17, 2018 09:16 CHECO RIZVI MD Jul 17, 2018 10:57
--- NOTE | 2018-07-17 10:40 | PDOC ---
PROGRESS NOTES Chief Complaint Chief Complaint CC: Nausea Vomiting Abdominal pain History of Present Illness History of Present Illness Patient was seen and examined. She states that she has been passing gas. Still complains of nausea. Vitals Vitals Vital Signs Date Time Temp Pulse Resp B/P (MAP) Pulse Ox O2 Delivery O2 Flow Rate FiO2 07/17/18 07:39 98.0 69 17 128/54 (78) 95 Nasal Cannula 2.0 98.0 Physical Exam General: Alert, Oriented X3, Cooperative, No acute distress Heart: Regular rate, Normal S1, Normal S2, No murmurs Abdomen: Soft, No tenderness, Other (ND) Extremities: No clubbing, No cyanosis Skin: No rashes, No breakdown Labs LABS Laboratory Tests Test 07/17/18 05:30 White Blood Count 6.2 x10^3/uL (4.0-11.0) Red Blood Count 2.72 x10^6/uL (3.50-5.40) Hemoglobin 8.3 g/dL (12.0-15.5) Hematocrit 25.2 % (36.0-47.0) Mean Corpuscular Volume 93 fL (79-100) Mean Corpuscular Hemoglobin 30 pg (25-35) Mean Corpuscular Hemoglobin Concent 33 g/dL (31-37) Red Cell Distribution Width 19.6 % (11.5-14.5) Platelet Count 231 x10^3/uL (140-400) Neutrophils (%) (Auto) 81 % (31-73) Lymphocytes (%) (Auto) 9 % (24-48) Monocytes (%) (Auto) 10 % (0-9) Eosinophils (%) (Auto) 0 % (0-3) Basophils (%) (Auto) 0 % (0-3) Neutrophils # (Auto) 5.0 x10^3uL (1.8-7.7) Lymphocytes # (Auto) 0.5 x10^3/uL (1.0-4.8) Monocytes # (Auto) 0.6 x10^3/uL (0.0-1.1) Eosinophils # (Auto) 0.0 x10^3/uL (0.0-0.7) Basophils # (Auto) 0.0 x10^3/uL (0.0-0.2) Sodium Level 145 mmol/L (136-145) Potassium Level 4.2 mmol/L (3.5-5.1) Chloride Level 112 mmol/L (98-107) Carbon Dioxide Level 27 mmol/L (21-32) Anion Gap 6 (6-14) Blood Urea Nitrogen 43 mg/dL (7-20) Creatinine 1.3 mg/dL (0.6-1.0) Estimated GFR (Cockcroft-Gault) 38.9 Glucose Level 112 mg/dL (70-99) Calcium Level 8.0 mg/dL (8.5-10.1) Review of Systems Review of Systems Heart: denies chest pain Lungs: denies soa Integument: denies rashes Assessment and Plan Assessmemt and Plan Assessment: 1. Small bowel obstruction 2. Colitisand 3. Azotemia, 4. acute renal failure 5. anemia 6. Diabetes 7. Gerd Plan: 1. IV Flagyl, IV Levaquin 2. Follow Surgery recommendations - acute abdominal workup 3. Home meds 4. PT/OT 5. Frequent labs 6. repeat imaging pending 7. zofran prn Comment Review of Relevant I have reviewed the following items nick (where applicable) has been applied. Labs Laboratory Tests Test 07/15/18 22:35 07/15/18 22:55 07/15/18 23:40 07/16/18 06:00 Sodium Level 140 mmol/L (136-145) Potassium Level 4.4 mmol/L (3.5-5.1) Chloride Level 105 mmol/L (98-107) Carbon Dioxide Level 26 mmol/L (21-32) Anion Gap 9 (6-14) Blood Urea Nitrogen 42 mg/dL (7-20) Creatinine 1.5 mg/dL (0.6-1.0) Estimated GFR (Cockcroft-Gault) 33.0 BUN/Creatinine Ratio 28 (6-20) Glucose Level 144 mg/dL (70-99) Calcium Level 9.8 mg/dL (8.5-10.1) Total Bilirubin 0.3 mg/dL (0.2-1.0) Aspartate Amino Transf (AST/SGOT) 18 U/L (15-37) Alanine Aminotransferase (ALT/SGPT) 23 U/L (14-59) Alkaline Phosphatase 113 U/L (46-116) Total Protein 7.8 g/dL (6.4-8.2) Albumin 3.5 g/dL (3.4-5.0) Albumin/Globulin Ratio 0.8 (1.0-1.7) Urine Collection Type U cath Urine Color Dk yellow Urine Clarity Clear Urine pH 5.0 Urine Specific [place] >=1.030 Urine Protein Negative mg/dL (NEG-TRACE) Urine Glucose (UA) Negative mg/dL (NEG) Urine Ketones (Stick) Trace mg/dL (NEG) Urine Blood Negative (NEG) Urine Nitrite Negative (NEG) Urine Bilirubin Small (NEG) Urine Urobilinogen Dipstick 0.2 mg/dL (0.2 mg/dL) Urine Leukocyte Esterase Negative (NEG) Urine RBC Occ /HPF (0-2) Urine WBC 0 /HPF (0-4) Urine Transitional Epithelial Cells Occ /LPF Urine Bacteria 0 /HPF (0-FEW) Urine Hyaline Casts Moderate /HPF Urine Mucus Mod /LPF White Blood Count 10.2 x10^3/uL (4.0-11.0) Red Blood Count 3.61 x10^6/uL (3.50-5.40) Hemoglobin 10.5 g/dL (12.0-15.5) Hematocrit 32.7 % (36.0-47.0) Mean Corpuscular Volume 91 fL (79-100) Mean Corpuscular Hemoglobin 29 pg (25-35) Mean Corpuscular Hemoglobin Concent 32 g/dL (31-37) Red Cell Distribution Width 18.9 % (11.5-14.5) Platelet Count 328 x10^3/uL (140-400) Neutrophils (%) (Auto) 90 % (31-73) Lymphocytes (%) (Auto) 3 % (24-48) Monocytes (%) (Auto) 6 % (0-9) Eosinophils (%) (Auto) 1 % (0-3) Basophils (%) (Auto) 0 % (0-3) Neutrophils # (Auto) 9.2 x10^3uL (1.8-7.7) Lymphocytes # (Auto) 0.3 x10^3/uL (1.0-4.8) Monocytes # (Auto) 0.6 x10^3/uL (0.0-1.1) Eosinophils # (Auto) 0.1 x10^3/uL (0.0-0.7) Basophils # (Auto) 0.0 x10^3/uL (0.0-0.2) Segmented Neutrophils % 77 % (35-66) Band Neutrophils % 15 % (0-9) Lymphocytes % 5 % (24-48) Monocytes % 3 % (0-10) Platelet Estimate Adequate (ADEQUATE) Polychromasia Slight Anisocytosis Slight Nasal Screen MRSA (PCR) Negative (Negative) Test 07/17/18 05:30 White Blood Count 6.2 x10^3/uL (4.0-11.0) Red Blood Count 2.72 x10^6/uL (3.50-5.40) Hemoglobin 8.3 g/dL (12.0-15.5) Hematocrit 25.2 % (36.0-47.0) Mean Corpuscular Volume 93 fL (79-100) Mean Corpuscular Hemoglobin 30 pg (25-35) Mean Corpuscular Hemoglobin Concent 33 g/dL (31-37) Red Cell Distribution Width 19.6 % (11.5-14.5) Platelet Count 231 x10^3/uL (140-400) Neutrophils (%) (Auto) 81 % (31-73) Lymphocytes (%) (Auto) 9 % (24-48) Monocytes (%) (Auto) 10 % (0-9) Eosinophils (%) (Auto) 0 % (0-3) Basophils (%) (Auto) 0 % (0-3) Neutrophils # (Auto) 5.0 x10^3uL (1.8-7.7) Lymphocytes # (Auto) 0.5 x10^3/uL (1.0-4.8) Monocytes # (Auto) 0.6 x10^3/uL (0.0-1.1) Eosinophils # (Auto) 0.0 x10^3/uL (0.0-0.7) Basophils # (Auto) 0.0 x10^3/uL (0.0-0.2) Sodium Level 145 mmol/L (136-145) Potassium Level 4.2 mmol/L (3.5-5.1) Chloride Level 112 mmol/L (98-107) Carbon Dioxide Level 27 mmol/L (21-32) Anion Gap 6 (6-14) Blood Urea Nitrogen 43 mg/dL (7-20) Creatinine 1.3 mg/dL (0.6-1.0) Estimated GFR (Cockcroft-Gault) 38.9 Glucose Level 112 mg/dL (70-99) Calcium Level 8.0 mg/dL (8.5-10.1) Laboratory Tests Test 07/17/18 05:30 White Blood Count 6.2 x10^3/uL (4.0-11.0) Red Blood Count 2.72 x10^6/uL (3.50-5.40) Hemoglobin 8.3 g/dL (12.0-15.5) Hematocrit 25.2 % (36.0-47.0) Mean Corpuscular Volume 93 fL (79-100) Mean Corpuscular Hemoglobin 30 pg (25-35) Mean Corpuscular Hemoglobin Concent 33 g/dL (31-37) Red Cell Distribution Width 19.6 % (11.5-14.5) Platelet Count 231 x10^3/uL (140-400) Neutrophils (%) (Auto) 81 % (31-73) Lymphocytes (%) (Auto) 9 % (24-48) Monocytes (%) (Auto) 10 % (0-9) Eosinophils (%) (Auto) 0 % (0-3) Basophils (%) (Auto) 0 % (0-3) Neutrophils # (Auto) 5.0 x10^3uL (1.8-7.7) Lymphocytes # (Auto) 0.5 x10^3/uL (1.0-4.8) Monocytes # (Auto) 0.6 x10^3/uL (0.0-1.1) Eosinophils # (Auto) 0.0 x10^3/uL (0.0-0.7) Basophils # (Auto) 0.0 x10^3/uL (0.0-0.2) Sodium Level 145 mmol/L (136-145) Potassium Level 4.2 mmol/L (3.5-5.1) Chloride Level 112 mmol/L (98-107) Carbon Dioxide Level 27 mmol/L (21-32) Anion Gap 6 (6-14) Blood Urea Nitrogen 43 mg/dL (7-20) Creatinine 1.3 mg/dL (0.6-1.0) Estimated GFR (Cockcroft-Gault) 38.9 Glucose Level 112 mg/dL (70-99) Calcium Level 8.0 mg/dL (8.5-10.1) Medications Current Medications Sodium Chloride 1,000 ml @ 1,000 mls/hr 1X ONCE IV Last administered on at 22:49; Start 07/15/18 at 22:30; Stop 07/15/18 at 23:29; Status DC Metoclopramide HCl (Reglan Vial) 10 mg 1X ONCE IV Last administered on at 22:47; Start 07/15/18 at 22:30; Stop 07/15/18 at 22:31; Status DC Ondansetron HCl (Zofran) 4 mg PRN Q8HRS PRN IV NAUSEA/VOMITING 1ST CHOICE Last administered on 07/16/18at 02:17; Start 07/16/18 at 01:00; Stop 07/16/18 at 10:51; Status DC Fentanyl Citrate (Fentanyl 2ml Vial) 50 mcg PRN Q1HR PRN IV SEVERE PAIN; Start 07/16/18 at 01:00; Stop 07/17/18 at 00:59; Status DC Sodium Chloride 1,000 ml @ 125 mls/hr Q8H IV Last administered on 07/16/18at 17: 06; Start 07/16/18 at 01:00; Stop 07/16/18 at 19:44; Status DC Benzocaine (Hurricaine One) 1 spray 1X ONCE MM Last administered on 07/16/18at 01:58; Start 07/16/18 at 02:30; Stop 07/16/18 at 02:31; Status DC Metronidazole (Flagyl) 500 mg Q8HRS PO ; Start 07/16/18 at 11:00 Levofloxacin/ Dextrose 100 ml @ 100 mls/hr Q24H IV Last administered on at 12:04; Start 07/16/18 at 11:00 Ondansetron HCl (Zofran) 4 mg PRN Q6HRS PRN IV NAUSEA/VOMITING Last administered on 07/17/18at 04:02; Start 07/16/18 at 19:45 Sodium Chloride 1,000 ml @ 125 mls/hr Q8H IV Last administered on 07/17/18at 10: 13; Start 07/16/18 at 19:45 Prochlorperazine Edisylate (Compazine) 10 mg PRN Q6HRS PRN IV NAUSEA/VOMITING 2ND CHOICE Last administered on 07/16/18at 22:42; Start 07/16/18 at 22:30 Active Scripts Active Reported Clonazepam 0.5 Mg Tablet 1 Tab PO DAILY PRN Detrol La (Tolterodine Tartrate) 2 Mg Cap.er.24h 2 Mg PO BID Thera-M (Multivits,Th W-Fe,Other Min) 1 Each Tablet 1 Each PO DAILY Ranitidine Hcl 150 Mg Tablet 150 Mg PO DAILY Mirtazapine 15 Mg Tablet 1 Tab PO QHS Melatonin 3 Mg Tablet 5 Mg PO HS Ferrous Sulfate 325 Mg Tablet.dr 325 Mg PO DAILY Clonazepam 0.5 Mg Tablet 1 Tab PO HS Acetaminophen 500 Mg Tablet 2 Tab PO BID Levothyroxine Sodium 100 Mcg Tablet 1 Tab PO DAILY Clonazepam 1 Mg Tablet 1 Tab PO DAILY Vitamin D (Cholecalciferol (Vitamin D3)) 1,000 Unit Capsule 1 Cap PO DAILY Potassium Chloride 10 Meq Capsule.er 1 Cap PO DAILY Lisinopril-Hctz 20-25 Mg Tab (Lisinopril/Hydrochlorothiazide) 1 Each Tablet 1 Tab PO DAILY Pravastatin Sodium 20 Mg Tablet 1 Tab PO QHS Fluoxetine Hcl 20 Mg Capsule 3 Cap PO HS Meclizine Hcl 12.5 Mg Tablet 1 Tab PO TID PRN Tramadol Hcl 50 Mg Tablet 50 Mg PO Q8HRS PRN Cyanocobalamin Injection (Cyanocobalamin (Vitamin B-12)) 1,000 Mcg/1 Ml Vial 1 Ml IM QMONTH Vitals/I & O Vital Sign - Last 24 Hours 07/16/18 07/16/18 07/16/18 07/16/18 11:00 15:00 19:30 19:31 Temp 97.8 98.0 98.4 97.8 98.0 98.4 Pulse 80 97 99 Resp 18 16 19 B/P (MAP) 110/50 (70) 83/30 (47) 84/33 (50) Pulse Ox 97 97 96 O2 Delivery Room Air Room Air Nasal Cannula Nasal Cannula O2 Flow Rate 2.0 2.0 07/16/18 07/16/18 07/17/18 07/17/18 19:41 23:59 03:59 07:39 Temp 98.3 98.6 98.0 98.3 98.6 98.0 Pulse 99 94 93 69 Resp 19 18 17 B/P (MAP) 98/39 (58) 118/46 (70) 110/53 (72) 128/54 (78) Pulse Ox 95 94 95 O2 Delivery Nasal Cannula Nasal Cannula Nasal Cannula O2 Flow Rate 2.0 2.0 2.0 Intake and Output 07/16/18 07/16/18 07/17/18 15:01 23:01 07:01 Intake Total 1000 ml 500 ml Output Total 0 ml 100 ml 300 ml Balance 0 ml 900 ml 200 ml APRIL MEZA III DO Jul 17, 2018 10:40
[2018-07-17 11:30] VITALS: BP 122/52
--- NOTE | 2018-07-17 12:17 | RAD ---
EXAM: Frontal view of the chest, AP views of the abdomen in upright and supine positions. CLINICAL INDICATION: SMALL BOWEL OBSTRUCTION COMPARISON: 07/16/2018, CT 07/15/2018 FINDINGS: The heart is not enlarged. Mediastinal and hilar contours are normal. Dense left lung base parenchymal airspace opacities are seen, with air-fluid level, shown to be hiatal hernia on prior CT. Associated patchy left lung base opacity likely atelectasis. Linear opacities left midlung likely scarring/atelectasis. No pleural effusion or pneumothorax. No abnormal small or large bowel dilatation. Mild colonic stool content. No abnormal soft tissue mass effect. No suspicious calcifications are seen. No free intraperitoneal gas. S-shaped scoliosis of the thoracolumbar spine. IMPRESSION: Several prominent loops of small bowel are seen within the abdomen. However no abnormal dilatation is seen to suggest bowel obstruction. Electronically signed by: Ganga Stahl MD (07/17/2018 12:12 PM) [facility]
[2018-07-17 14:56] VITALS: BP 119/56
--- NOTE | 2018-07-17 15:01 | PDOC ---
PROGRESS NOTES Subjective Subjective SEEN IN FOLLOW UP OF ARF Objective Objective Vital Signs Date Time Temp Pulse Resp B/P (MAP) Pulse Ox O2 Delivery O2 Flow Rate FiO2 07/17/18 14:56 98.3 77 17 119/56 (77) 99 Nasal Cannula 2.0 98.3 Intake and Output 07/17/18 07:01 Intake Total 1500 ml Output Total 400 ml Balance 1100 ml IV Total 1500 ml Output Urine Total 300 ml Emesis 100 ml # Voids 2 Physical Exam Abdomen: Normal bowel sounds, Soft, No tenderness, No hepatosplenomegaly, No masses Heart: Regular rate, Normal S1, Normal S2, No murmurs, Gallops Extremities: No clubbing, No cyanosis, No edema, Normal pulses, No tenderness/ swelling General: Alert, Oriented X3, Cooperative, No acute distress Lungs: Clear to auscultation Psych/Mental Status: Mental status NL, Mood NL Diagnosis RENAL FAILURE: Acute, Other (DEHYDRATION) Assessment Assessment Problems Medical Problems: (1) Small bowel obstruction Status: Acute Plan Plan of Care RENAL FUNCTION IS BETTER WITH IVF. CONT HYDRATION AND FOLLOW LAB Comment Review of Relevant I have reviewed the following items nick (where applicable) has been applied. Labs Laboratory Tests Test 07/15/18 22:35 07/15/18 22:55 07/15/18 23:40 07/16/18 06:00 Sodium Level 140 mmol/L (136-145) Potassium Level 4.4 mmol/L (3.5-5.1) Chloride Level 105 mmol/L (98-107) Carbon Dioxide Level 26 mmol/L (21-32) Anion Gap 9 (6-14) Blood Urea Nitrogen 42 mg/dL (7-20) Creatinine 1.5 mg/dL (0.6-1.0) Estimated GFR (Cockcroft-Gault) 33.0 BUN/Creatinine Ratio 28 (6-20) Glucose Level 144 mg/dL (70-99) Calcium Level 9.8 mg/dL (8.5-10.1) Total Bilirubin 0.3 mg/dL (0.2-1.0) Aspartate Amino Transf (AST/SGOT) 18 U/L (15-37) Alanine Aminotransferase (ALT/SGPT) 23 U/L (14-59) Alkaline Phosphatase 113 U/L (46-116) Total Protein 7.8 g/dL (6.4-8.2) Albumin 3.5 g/dL (3.4-5.0) Albumin/Globulin Ratio 0.8 (1.0-1.7) Urine Collection Type U cath Urine Color Dk yellow Urine Clarity Clear Urine pH 5.0 Urine Specific [place] >=1.030 Urine Protein Negative mg/dL (NEG-TRACE) Urine Glucose (UA) Negative mg/dL (NEG) Urine Ketones (Stick) Trace mg/dL (NEG) Urine Blood Negative (NEG) Urine Nitrite Negative (NEG) Urine Bilirubin Small (NEG) Urine Urobilinogen Dipstick 0.2 mg/dL (0.2 mg/dL) Urine Leukocyte Esterase Negative (NEG) Urine RBC Occ /HPF (0-2) Urine WBC 0 /HPF (0-4) Urine Transitional Epithelial Cells Occ /LPF Urine Bacteria 0 /HPF (0-FEW) Urine Hyaline Casts Moderate /HPF Urine Mucus Mod /LPF White Blood Count 10.2 x10^3/uL (4.0-11.0) Red Blood Count 3.61 x10^6/uL (3.50-5.40) Hemoglobin 10.5 g/dL (12.0-15.5) Hematocrit 32.7 % (36.0-47.0) Mean Corpuscular Volume 91 fL (79-100) Mean Corpuscular Hemoglobin 29 pg (25-35) Mean Corpuscular Hemoglobin Concent 32 g/dL (31-37) Red Cell Distribution Width 18.9 % (11.5-14.5) Platelet Count 328 x10^3/uL (140-400) Neutrophils (%) (Auto) 90 % (31-73) Lymphocytes (%) (Auto) 3 % (24-48) Monocytes (%) (Auto) 6 % (0-9) Eosinophils (%) (Auto) 1 % (0-3) Basophils (%) (Auto) 0 % (0-3) Neutrophils # (Auto) 9.2 x10^3uL (1.8-7.7) Lymphocytes # (Auto) 0.3 x10^3/uL (1.0-4.8) Monocytes # (Auto) 0.6 x10^3/uL (0.0-1.1) Eosinophils # (Auto) 0.1 x10^3/uL (0.0-0.7) Basophils # (Auto) 0.0 x10^3/uL (0.0-0.2) Segmented Neutrophils % 77 % (35-66) Band Neutrophils % 15 % (0-9) Lymphocytes % 5 % (24-48) Monocytes % 3 % (0-10) Platelet Estimate Adequate (ADEQUATE) Polychromasia Slight Anisocytosis Slight Nasal Screen MRSA (PCR) Negative (Negative) Test 07/17/18 05:30 White Blood Count 6.2 x10^3/uL (4.0-11.0) Red Blood Count 2.72 x10^6/uL (3.50-5.40) Hemoglobin 8.3 g/dL (12.0-15.5) Hematocrit 25.2 % (36.0-47.0) Mean Corpuscular Volume 93 fL (79-100) Mean Corpuscular Hemoglobin 30 pg (25-35) Mean Corpuscular Hemoglobin Concent 33 g/dL (31-37) Red Cell Distribution Width 19.6 % (11.5-14.5) Platelet Count 231 x10^3/uL (140-400) Neutrophils (%) (Auto) 81 % (31-73) Lymphocytes (%) (Auto) 9 % (24-48) Monocytes (%) (Auto) 10 % (0-9) Eosinophils (%) (Auto) 0 % (0-3) Basophils (%) (Auto) 0 % (0-3) Neutrophils # (Auto) 5.0 x10^3uL (1.8-7.7) Lymphocytes # (Auto) 0.5 x10^3/uL (1.0-4.8) Monocytes # (Auto) 0.6 x10^3/uL (0.0-1.1) Eosinophils # (Auto) 0.0 x10^3/uL (0.0-0.7) Basophils # (Auto) 0.0 x10^3/uL (0.0-0.2) Sodium Level 145 mmol/L (136-145) Potassium Level 4.2 mmol/L (3.5-5.1) Chloride Level 112 mmol/L (98-107) Carbon Dioxide Level 27 mmol/L (21-32) Anion Gap 6 (6-14) Blood Urea Nitrogen 43 mg/dL (7-20) Creatinine 1.3 mg/dL (0.6-1.0) Estimated GFR (Cockcroft-Gault) 38.9 Glucose Level 112 mg/dL (70-99) Calcium Level 8.0 mg/dL (8.5-10.1) Laboratory Tests Test 07/17/18 05:30 White Blood Count 6.2 x10^3/uL (4.0-11.0) Red Blood Count 2.72 x10^6/uL (3.50-5.40) Hemoglobin 8.3 g/dL (12.0-15.5) Hematocrit 25.2 % (36.0-47.0) Mean Corpuscular Volume 93 fL (79-100) Mean Corpuscular Hemoglobin 30 pg (25-35) Mean Corpuscular Hemoglobin Concent 33 g/dL (31-37) Red Cell Distribution Width 19.6 % (11.5-14.5) Platelet Count 231 x10^3/uL (140-400) Neutrophils (%) (Auto) 81 % (31-73) Lymphocytes (%) (Auto) 9 % (24-48) Monocytes (%) (Auto) 10 % (0-9) Eosinophils (%) (Auto) 0 % (0-3) Basophils (%) (Auto) 0 % (0-3) Neutrophils # (Auto) 5.0 x10^3uL (1.8-7.7) Lymphocytes # (Auto) 0.5 x10^3/uL (1.0-4.8) Monocytes # (Auto) 0.6 x10^3/uL (0.0-1.1) Eosinophils # (Auto) 0.0 x10^3/uL (0.0-0.7) Basophils # (Auto) 0.0 x10^3/uL (0.0-0.2) Sodium Level 145 mmol/L (136-145) Potassium Level 4.2 mmol/L (3.5-5.1) Chloride Level 112 mmol/L (98-107) Carbon Dioxide Level 27 mmol/L (21-32) Anion Gap 6 (6-14) Blood Urea Nitrogen 43 mg/dL (7-20) Creatinine 1.3 mg/dL (0.6-1.0) Estimated GFR (Cockcroft-Gault) 38.9 Glucose Level 112 mg/dL (70-99) Calcium Level 8.0 mg/dL (8.5-10.1) Medications Current Medications Sodium Chloride 1,000 ml @ 1,000 mls/hr 1X ONCE IV Last administered on at 22:49; Start 07/15/18 at 22:30; Stop 07/15/18 at 23:29; Status DC Metoclopramide HCl (Reglan Vial) 10 mg 1X ONCE IV Last administered on at 22:47; Start 07/15/18 at 22:30; Stop 07/15/18 at 22:31; Status DC Ondansetron HCl (Zofran) 4 mg PRN Q8HRS PRN IV NAUSEA/VOMITING 1ST CHOICE Last administered on 07/16/18at 02:17; Start 07/16/18 at 01:00; Stop 07/16/18 at 10:51; Status DC Fentanyl Citrate (Fentanyl 2ml Vial) 50 mcg PRN Q1HR PRN IV SEVERE PAIN; Start 07/16/18 at 01:00; Stop 07/17/18 at 00:59; Status DC Sodium Chloride 1,000 ml @ 125 mls/hr Q8H IV Last administered on 07/16/18at 17: 06; Start 07/16/18 at 01:00; Stop 07/16/18 at 19:44; Status DC Benzocaine (Hurricaine One) 1 spray 1X ONCE MM Last administered on 07/16/18at 01:58; Start 07/16/18 at 02:30; Stop 07/16/18 at 02:31; Status DC Metronidazole (Flagyl) 500 mg Q8HRS PO ; Start 07/16/18 at 11:00; Stop 07/17/18 at 14:24; Status DC Levofloxacin/ Dextrose 100 ml @ 100 mls/hr Q24H IV Last administered on at 11:55; Start 07/16/18 at 11:00; Stop 07/17/18 at 14:49; Status DC Ondansetron HCl (Zofran) 4 mg PRN Q6HRS PRN IV NAUSEA/VOMITING, 1ST CHOICE Last administered on 07/17/18at 04:02; Start 07/16/18 at 19:45 Sodium Chloride 1,000 ml @ 125 mls/hr Q8H IV Last administered on 07/17/18at 10: 13; Start 07/16/18 at 19:45 Prochlorperazine Edisylate (Compazine) 10 mg PRN Q6HRS PRN IV NAUSEA/VOMITING 2ND CHOICE Last administered on 07/16/18at 22:42; Start 07/16/18 at 22:30 Metronidazole 100 ml @ 100 mls/hr Q8HRS IV Last administered on 07/17/18at 14:35 ; Start 07/17/18 at 14:30 Levofloxacin/ Dextrose 50 ml @ 50 mls/hr Q24H IV ; Start 07/18/18 at 11:00 Active Scripts Active Reported Clonazepam 0.5 Mg Tablet 1 Tab PO DAILY PRN Detrol La (Tolterodine Tartrate) 2 Mg Cap.er.24h 2 Mg PO BID Thera-M (Multivits,Th W-Fe,Other Min) 1 Each Tablet 1 Each PO DAILY Ranitidine Hcl 150 Mg Tablet 150 Mg PO DAILY Mirtazapine 15 Mg Tablet 1 Tab PO QHS Melatonin 3 Mg Tablet 5 Mg PO HS Ferrous Sulfate 325 Mg Tablet.dr 325 Mg PO DAILY Clonazepam 0.5 Mg Tablet 1 Tab PO HS Acetaminophen 500 Mg Tablet 2 Tab PO BID Levothyroxine Sodium 100 Mcg Tablet 1 Tab PO DAILY Clonazepam 1 Mg Tablet 1 Tab PO DAILY Vitamin D (Cholecalciferol (Vitamin D3)) 1,000 Unit Capsule 1 Cap PO DAILY Potassium Chloride 10 Meq Capsule.er 1 Cap PO DAILY Lisinopril-Hctz 20-25 Mg Tab (Lisinopril/Hydrochlorothiazide) 1 Each Tablet 1 Tab PO DAILY Pravastatin Sodium 20 Mg Tablet 1 Tab PO QHS Fluoxetine Hcl 20 Mg Capsule 3 Cap PO HS Meclizine Hcl 12.5 Mg Tablet 1 Tab PO TID PRN Tramadol Hcl 50 Mg Tablet 50 Mg PO Q8HRS PRN Cyanocobalamin Injection (Cyanocobalamin (Vitamin B-12)) 1,000 Mcg/1 Ml Vial 1 Ml IM QMONTH Vitals/I & O Vital Sign - Last 24 Hours 07/16/18 07/16/18 07/16/18 07/16/18 15:00 19:30 19:31 19:41 Temp 98.0 98.4 98.0 98.4 Pulse 97 99 99 Resp 16 19 B/P (MAP) 83/30 (47) 84/33 (50) 98/39 (58) Pulse Ox 97 96 O2 Delivery Room Air Nasal Cannula Nasal Cannula O2 Flow Rate 2.0 2.0 07/16/18 07/17/18 07/17/18 07/17/18 23:59 03:59 07:39 08:00 Temp 98.3 98.6 98.0 98.3 98.6 98.0 Pulse 94 93 69 Resp 19 18 17 B/P (MAP) 118/46 (70) 110/53 (72) 128/54 (78) Pulse Ox 95 94 95 O2 Delivery Nasal Cannula Nasal Cannula Nasal Cannula Nasal Cannula O2 Flow Rate 2.0 2.0 2.0 2.0 07/17/18 07/17/18 11:30 14:56 Temp 98.7 98.3 98.7 98.3 Pulse 65 77 Resp 17 B/P (MAP) 122/52 (75) 119/56 (77) Pulse Ox 95 99 O2 Delivery Nasal Cannula Nasal Cannula O2 Flow Rate 2.0 2.0 Intake and Output 07/16/18 07/16/18 07/17/18 15:01 23:01 07:01 Intake Total 1000 ml 500 ml Output Total 0 ml 100 ml 300 ml Balance 0 ml 900 ml 200 ml ANDREINA HORNER MD Jul 17, 2018 15:00
[2018-07-17 19:00] VITALS: BP 121/56
[2018-07-17] MEDS: ZOLPIDEM 5 MG TABLET. PO PRN (19:38)
[2018-07-17 23:00] VITALS: BP 111/50
[2018-07-18 03:00] VITALS: BP 113/51
[2018-07-18] MEDS: IV NORMAL SALINE 1000ML BAG 1,000 ML IV SCH ×3 (05:29→20:56)
[2018-07-18 07:00] VITALS: BP 121/51
--- NOTE | 2018-07-18 08:36 | PDOC ---
DHEERAJ MARTIN [employer] 07/18/18 0836: SURGICAL PROGRESS NOTE Subjective feeling better low appetite but no nausea, taking some clears + stool today Vital Signs Vital Signs Date Time Temp Pulse Resp B/P (MAP) Pulse Ox O2 Delivery O2 Flow Rate FiO2 07/18/18 07:00 98.5 89 16 121/51 (74) 96 Nasal Cannula 2.0 98.5 I&O Intake and Output 07/18/18 07:01 Intake Total 1980 ml Output Total 150 ml Balance 1830 ml Intake Oral 880 ml IV Total 1100 ml Output Urine Total 150 ml # Voids 6 General: Alert, Oriented X3, Cooperative, No acute distress Abdomen: Soft, No tenderness Labs Laboratory Tests Test 07/17/18 05:30 White Blood Count 6.2 x10^3/uL (4.0-11.0) Red Blood Count 2.72 x10^6/uL (3.50-5.40) Hemoglobin 8.3 g/dL (12.0-15.5) Hematocrit 25.2 % (36.0-47.0) Mean Corpuscular Volume 93 fL (79-100) Mean Corpuscular Hemoglobin 30 pg (25-35) Mean Corpuscular Hemoglobin Concent 33 g/dL (31-37) Red Cell Distribution Width 19.6 % (11.5-14.5) Platelet Count 231 x10^3/uL (140-400) Neutrophils (%) (Auto) 81 % (31-73) Lymphocytes (%) (Auto) 9 % (24-48) Monocytes (%) (Auto) 10 % (0-9) Eosinophils (%) (Auto) 0 % (0-3) Basophils (%) (Auto) 0 % (0-3) Neutrophils # (Auto) 5.0 x10^3uL (1.8-7.7) Lymphocytes # (Auto) 0.5 x10^3/uL (1.0-4.8) Monocytes # (Auto) 0.6 x10^3/uL (0.0-1.1) Eosinophils # (Auto) 0.0 x10^3/uL (0.0-0.7) Basophils # (Auto) 0.0 x10^3/uL (0.0-0.2) Sodium Level 145 mmol/L (136-145) Potassium Level 4.2 mmol/L (3.5-5.1) Chloride Level 112 mmol/L (98-107) Carbon Dioxide Level 27 mmol/L (21-32) Anion Gap 6 (6-14) Blood Urea Nitrogen 43 mg/dL (7-20) Creatinine 1.3 mg/dL (0.6-1.0) Estimated GFR (Cockcroft-Gault) 38.9 Glucose Level 112 mg/dL (70-99) Calcium Level 8.0 mg/dL (8.5-10.1) Problem List Problems Medical Problems: (1) Small bowel obstruction Status: Acute Assessment/Plan observe how diet goes appears c/w gastroenteritis CHECO RIZVI MD 07/18/18 1253: SURGICAL PROGRESS NOTE Assessment/Plan Overall improving tolerating clears. Agree with Jalil assessment and plan DHEERAJ MARTIN APRN Jul 18, 2018 08:36 CHECO RIZVI MD Jul 18, 2018 12:53
[2018-07-18] MEDS: NYSTATIN TOPICAL POWDER 15GM BOTTLE. TP SCH ×2 (10:36→20:56)
[2018-07-18 11:00] VITALS: BP 106/40
--- NOTE | 2018-07-18 12:24 | PDOC ---
PROGRESS NOTES Chief Complaint Chief Complaint CC: Nausea Vomiting Abdominal pain History of Present Illness History of Present Illness Patient was seen and examined. She says she had one BM yesterday and a small one this morning. She is feeling better. Says that she was able to eat pudding with some milk and orange juice. Vitals Vitals Vital Signs Date Time Temp Pulse Resp B/P (MAP) Pulse Ox O2 Delivery O2 Flow Rate FiO2 07/18/18 11:00 98.5 87 16 106/40 (62) 97 Nasal Cannula 2.0 98.5 Physical Exam General: Alert, Oriented X3, Cooperative, No acute distress Heart: Regular rate, Normal S1, Normal S2, No murmurs, Gallops Abdomen: Soft, No tenderness Extremities: No clubbing, No cyanosis, No edema, Normal pulses, No tenderness/ swelling Skin: No rashes, No breakdown Review of Systems Review of Systems Heart: denies chest pain Lungs: denies soa Integument: denies rashes Assessment and Plan Assessmemt and Plan Assessment: 1. Small bowel obstruction 2. Colitis 3. Azotemia, 4. acute renal failure 5. anemia 6. Diabetes 7. Gerd Plan: 1. IV Flagyl, IV Levaquin 2. Advance diet as tolerated 3. Home meds 4. PT/OT 5. Frequent labs 6. Hope to discharge possibly tomorrow 7. zofran prn Comment Review of Relevant I have reviewed the following items nick (where applicable) has been applied. Labs Laboratory Tests Test 07/17/18 05:30 White Blood Count 6.2 x10^3/uL (4.0-11.0) Red Blood Count 2.72 x10^6/uL (3.50-5.40) Hemoglobin 8.3 g/dL (12.0-15.5) Hematocrit 25.2 % (36.0-47.0) Mean Corpuscular Volume 93 fL (79-100) Mean Corpuscular Hemoglobin 30 pg (25-35) Mean Corpuscular Hemoglobin Concent 33 g/dL (31-37) Red Cell Distribution Width 19.6 % (11.5-14.5) Platelet Count 231 x10^3/uL (140-400) Neutrophils (%) (Auto) 81 % (31-73) Lymphocytes (%) (Auto) 9 % (24-48) Monocytes (%) (Auto) 10 % (0-9) Eosinophils (%) (Auto) 0 % (0-3) Basophils (%) (Auto) 0 % (0-3) Neutrophils # (Auto) 5.0 x10^3uL (1.8-7.7) Lymphocytes # (Auto) 0.5 x10^3/uL (1.0-4.8) Monocytes # (Auto) 0.6 x10^3/uL (0.0-1.1) Eosinophils # (Auto) 0.0 x10^3/uL (0.0-0.7) Basophils # (Auto) 0.0 x10^3/uL (0.0-0.2) Sodium Level 145 mmol/L (136-145) Potassium Level 4.2 mmol/L (3.5-5.1) Chloride Level 112 mmol/L (98-107) Carbon Dioxide Level 27 mmol/L (21-32) Anion Gap 6 (6-14) Blood Urea Nitrogen 43 mg/dL (7-20) Creatinine 1.3 mg/dL (0.6-1.0) Estimated GFR (Cockcroft-Gault) 38.9 Glucose Level 112 mg/dL (70-99) Calcium Level 8.0 mg/dL (8.5-10.1) Medications Current Medications Sodium Chloride 1,000 ml @ 1,000 mls/hr 1X ONCE IV Last administered on at 22:49; Start 07/15/18 at 22:30; Stop 07/15/18 at 23:29; Status DC Metoclopramide HCl (Reglan Vial) 10 mg 1X ONCE IV Last administered on at 22:47; Start 07/15/18 at 22:30; Stop 07/15/18 at 22:31; Status DC Ondansetron HCl (Zofran) 4 mg PRN Q8HRS PRN IV NAUSEA/VOMITING 1ST CHOICE Last administered on 07/16/18at 02:17; Start 07/16/18 at 01:00; Stop 07/16/18 at 10:51; Status DC Fentanyl Citrate (Fentanyl 2ml Vial) 50 mcg PRN Q1HR PRN IV SEVERE PAIN; Start 07/16/18 at 01:00; Stop 07/17/18 at 00:59; Status DC Sodium Chloride 1,000 ml @ 125 mls/hr Q8H IV Last administered on 07/16/18at 17: 06; Start 07/16/18 at 01:00; Stop 07/16/18 at 19:44; Status DC Benzocaine (Hurricaine One) 1 spray 1X ONCE MM Last administered on 07/16/18at 01:58; Start 07/16/18 at 02:30; Stop 07/16/18 at 02:31; Status DC Metronidazole (Flagyl) 500 mg Q8HRS PO ; Start 07/16/18 at 11:00; Stop 07/17/18 at 14:24; Status DC Levofloxacin/ Dextrose 100 ml @ 100 mls/hr Q24H IV Last administered on at 11:55; Start 07/16/18 at 11:00; Stop 07/17/18 at 14:49; Status DC Ondansetron HCl (Zofran) 4 mg PRN Q6HRS PRN IV NAUSEA/VOMITING, 1ST CHOICE Last administered on 07/17/18at 04:02; Start 07/16/18 at 19:45 Sodium Chloride 1,000 ml @ 125 mls/hr Q8H IV Last administered on 07/18/18 05: 29; Start 07/16/18 at 19:45 Prochlorperazine Edisylate (Compazine) 10 mg PRN Q6HRS PRN IV NAUSEA/VOMITING 2ND CHOICE Last administered on 07/16/18at 22:42; Start 07/16/18 at 22:30 Metronidazole 100 ml @ 100 mls/hr Q8HRS IV Last administered on 07/18/18at 05:28 ; Start 07/17/18 at 14:30 Levofloxacin/ Dextrose 50 ml @ 50 mls/hr Q24H IV Last administered on 07/18/18at 10:37; Start 07/18/18 at 11:00 Zolpidem Tartrate (Ambien) 5 mg PRN QHS PRN PO INSOMNIA Last administered on 07/17/18at 19:38; Start 07/17/18 at 19:15 Nystatin (Nystop) 1 enrike BID TP Last administered on 07/18/18at 10:36; Start at 09:00 Lactobacillus Rhamnosus (Culturelle) 1 cap BID PO ; Start 07/18/18 at 21:00 Active Scripts Active Reported Clonazepam 0.5 Mg Tablet 1 Tab PO DAILY PRN Detrol La (Tolterodine Tartrate) 2 Mg Cap.er.24h 2 Mg PO BID Thera-M (Multivits,Th W-Fe,Other Min) 1 Each Tablet 1 Each PO DAILY Ranitidine Hcl 150 Mg Tablet 150 Mg PO DAILY Mirtazapine 15 Mg Tablet 1 Tab PO QHS Melatonin 3 Mg Tablet 5 Mg PO HS Ferrous Sulfate 325 Mg Tablet.dr 325 Mg PO DAILY Clonazepam 0.5 Mg Tablet 1 Tab PO HS Acetaminophen 500 Mg Tablet 2 Tab PO BID Levothyroxine Sodium 100 Mcg Tablet 1 Tab PO DAILY Clonazepam 1 Mg Tablet 1 Tab PO DAILY Vitamin D (Cholecalciferol (Vitamin D3)) 1,000 Unit Capsule 1 Cap PO DAILY Potassium Chloride 10 Meq Capsule.er 1 Cap PO DAILY Lisinopril-Hctz 20-25 Mg Tab (Lisinopril/Hydrochlorothiazide) 1 Each Tablet 1 Tab PO DAILY Pravastatin Sodium 20 Mg Tablet 1 Tab PO QHS Fluoxetine Hcl 20 Mg Capsule 3 Cap PO HS Meclizine Hcl 12.5 Mg Tablet 1 Tab PO TID PRN Tramadol Hcl 50 Mg Tablet 50 Mg PO Q8HRS PRN Cyanocobalamin Injection (Cyanocobalamin (Vitamin B-12)) 1,000 Mcg/1 Ml Vial 1 Ml IM QMONTH Vitals/I & O Vital Sign - Last 24 Hours 07/17/18 07/17/18 07/17/18 07/17/18 14:56 19:00 20:00 23:00 Temp 98.3 98.4 98.9 98.3 98.4 98.9 Pulse 77 86 90 Resp 17 20 20 B/P (MAP) 119/56 (77) 121/56 (77) 111/50 (70) Pulse Ox 99 96 100 O2 Delivery Nasal Cannula Nasal Cannula Room Air Nasal Cannula O2 Flow Rate 2.0 2.0 2.0 07/18/18 07/18/18 07/18/18 03:00 07:00 11:00 Temp 98.2 98.5 98.5 98.2 98.5 98.5 Pulse 91 89 87 Resp 20 16 16 B/P (MAP) 113/51 (71) 121/51 (74) 106/40 (62) Pulse Ox 96 97 O2 Delivery Nasal Cannula Nasal Cannula Nasal Cannula O2 Flow Rate 2.0 2.0 2.0 Intake and Output 07/17/18 07/17/18 07/18/18 15:01 23:01 07:01 Intake Total 0 ml 1550 ml 430 ml Output Total 150 ml Balance 0 ml 1400 ml 430 ml APRIL MEZA III DO Jul 18, 2018 12:24
[2018-07-18 15:14] VITALS: BP 118/55
[2018-07-18 19:00] VITALS: BP 123/58
[2018-07-18] MEDS: LACTOBACILLUS RHAMNOSUS GG 1 CAPSULE. PO SCH (20:55)
[2018-07-18] MEDS: ZOLPIDEM 5 MG TABLET. PO PRN (20:55)
[2018-07-18 23:00] VITALS: BP 113/46
[2018-07-19 03:00] VITALS: BP 123/58
[2018-07-19] MEDS: IV NORMAL SALINE 1000ML BAG 1,000 ML IV SCH (05:57)
[2018-07-19 07:00] VITALS: BP 141/60
[2018-07-19] MEDS: LACTOBACILLUS RHAMNOSUS GG 1 CAPSULE. PO SCH (08:32)
[2018-07-19] MEDS: NYSTATIN TOPICAL POWDER 15GM BOTTLE. TP SCH (08:32)
[2018-07-19 11:08] VITALS: BP 133/60
--- NOTE | 2018-07-19 12:17 | PDOC ---
PROGRESS NOTES Chief Complaint Chief Complaint CC: Nausea Vomiting Abdominal pain History of Present Illness History of Present Illness Ms. Archibald was seen sitting in the chair in her room this morning. She notes that she feels ready to go home, but notes some mild anxiety. She notes that she has been able to tolerate her diet pretty well, but notes that she has a decreased appetite. She denies any abdominal pain, nausea, or vomiting. She is hoping to be discharged today to her long-term care facility. Vitals Vitals Vital Signs Date Time Temp Pulse Resp B/P (MAP) Pulse Ox O2 Delivery O2 Flow Rate FiO2 07/19/18 11:08 98.1 83 16 133/60 (84) 97 Nasal Cannula 2.0 98.1 Physical Exam General: Alert, Oriented X3, Cooperative, No acute distress Heart: Regular rate, Normal S1, Normal S2, No murmurs Lungs: Crackles Abdomen: Soft, No tenderness Extremities: No clubbing, No cyanosis, No edema, Normal pulses, No tenderness/ swelling Skin: No rashes, No breakdown Review of Systems Review of Systems General: endorses anxiety; denies fever, chills, fatigue Skin: denies rashes, lesions, itching Head: denies headache, dizziness, visual changes Eyes: denies eye pain, blurriness Ears: denies hearing loss, no earache Nose: denies rhinorrhea, stuffiness Respiratory: endorses shortness of breath; denies cough or wheezing GI: denies abdominal pain, nausea, vomiting, diarrhea MSK: denies muscle pain or weakness Neuro: denies numbness, tingling, weakness Assessment and Plan Assessmemt and Plan Assessment: 1. Small bowel obstruction 2. History of diverticular disease 3. Anxiety Plan: 1. Discharge later today to long-term care facility 2. Continue IV Levaquin and IV Flagyl 3. Continue to advance diet as tolerated 4. PT/OT 5. Continue Zofran prn 6. Continue home medications Comment Review of Relevant I have reviewed the following items nick (where applicable) has been applied. Medications Current Medications Sodium Chloride 1,000 ml @ 1,000 mls/hr 1X ONCE IV Last administered on at 22:49; Start 07/15/18 at 22:30; Stop 07/15/18 at 23:29; Status DC Metoclopramide HCl (Reglan Vial) 10 mg 1X ONCE IV Last administered on at 22:47; Start 07/15/18 at 22:30; Stop 07/15/18 at 22:31; Status DC Ondansetron HCl (Zofran) 4 mg PRN Q8HRS PRN IV NAUSEA/VOMITING 1ST CHOICE Last administered on 07/16/18at 02:17; Start 07/16/18 at 01:00; Stop 07/16/18 at 10:51; Status DC Fentanyl Citrate (Fentanyl 2ml Vial) 50 mcg PRN Q1HR PRN IV SEVERE PAIN; Start 07/16/18 at 01:00; Stop 07/17/18 at 00:59; Status DC Sodium Chloride 1,000 ml @ 125 mls/hr Q8H IV Last administered on 07/16/18at 17: 06; Start 07/16/18 at 01:00; Stop 07/16/18 at 19:44; Status DC Benzocaine (Hurricaine One) 1 spray 1X ONCE MM Last administered on 07/16/18at 01:58; Start 07/16/18 at 02:30; Stop 07/16/18 at 02:31; Status DC Metronidazole (Flagyl) 500 mg Q8HRS PO ; Start 07/16/18 at 11:00; Stop 07/17/18 at 14:24; Status DC Levofloxacin/ Dextrose 100 ml @ 100 mls/hr Q24H IV Last administered on at 11:55; Start 07/16/18 at 11:00; Stop 07/17/18 at 14:49; Status DC Ondansetron HCl (Zofran) 4 mg PRN Q6HRS PRN IV NAUSEA/VOMITING, 1ST CHOICE Last administered on 07/17/18at 04:02; Start 07/16/18 at 19:45 Sodium Chloride 1,000 ml @ 125 mls/hr Q8H IV Last administered on 07/19/18at 05: 57; Start 07/16/18 at 19:45 Prochlorperazine Edisylate (Compazine) 10 mg PRN Q6HRS PRN IV NAUSEA/VOMITING 2ND CHOICE Last administered on 07/16/18at 22:42; Start 07/16/18 at 22:30 Metronidazole 100 ml @ 100 mls/hr Q8HRS IV Last administered on 07/19/18 05:57 ; Start 07/17/18 at 14:30 Levofloxacin/ Dextrose 50 ml @ 50 mls/hr Q24H IV Last administered on 07/18/18 10:37; Start 07/18/18 at 11:00 Zolpidem Tartrate (Ambien) 5 mg PRN QHS PRN PO INSOMNIA Last administered on 20:55; Start 07/17/18 at 19:15 Nystatin (Nystop) 1 enrike BID TP Last administered on 07/19/18 08:32; Start at 09:00 Lactobacillus Rhamnosus (Culturelle) 1 cap BID PO Last administered on 08:32; Start 07/18/18 at 21:00 Active Scripts Active Reported Clonazepam 0.5 Mg Tablet 1 Tab PO DAILY PRN Detrol La (Tolterodine Tartrate) 2 Mg Cap.er.24h 2 Mg PO BID Thera-M (Multivits, W-Fe,Other Min) 1 Each Tablet 1 Each PO DAILY Ranitidine Hcl 150 Mg Tablet 150 Mg PO DAILY Mirtazapine 15 Mg Tablet 1 Tab PO QHS Melatonin 3 Mg Tablet 5 Mg PO HS Ferrous Sulfate 325 Mg Tablet.dr 325 Mg PO DAILY Clonazepam 0.5 Mg Tablet 1 Tab PO HS Acetaminophen 500 Mg Tablet 2 Tab PO BID Levothyroxine Sodium 100 Mcg Tablet 1 Tab PO DAILY Clonazepam 1 Mg Tablet 1 Tab PO DAILY Vitamin D (Cholecalciferol (Vitamin D3)) 1,000 Unit Capsule 1 Cap PO DAILY Potassium Chloride 10 Meq Capsule.er 1 Cap PO DAILY Lisinopril-Hctz 20-25 Mg Tab (Lisinopril/Hydrochlorothiazide) 1 Each Tablet 1 Tab PO DAILY Pravastatin Sodium 20 Mg Tablet 1 Tab PO QHS Fluoxetine Hcl 20 Mg Capsule 3 Cap PO HS Meclizine Hcl 12.5 Mg Tablet 1 Tab PO TID PRN Tramadol Hcl 50 Mg Tablet 50 Mg PO Q8HRS PRN Cyanocobalamin Injection (Cyanocobalamin (Vitamin B-12)) 1,000 Mcg/1 Ml Vial 1 Ml IM QMONTH Vitals/I & O Vital Sign - Last 24 Hours 07/18/18 07/18/18 07/18/18 07/18/18 15:14 19:00 20:00 23:00 Temp 98.5 98.4 99.0 98.5 98.4 99.0 Pulse 88 87 89 Resp 16 20 20 B/P (MAP) 118/55 (76) 123/58 (79) 113/46 (68) Pulse Ox 97 98 96 O2 Delivery Nasal Cannula Nasal Cannula Nasal Cannula Nasal Cannula O2 Flow Rate 2.0 2.0 2.0 2.0 07/19/18 07/19/18 07/19/18 03:00 07:00 11:08 Temp 98.1 99.1 98.1 98.1 99.1 98.1 Pulse 89 59 83 Resp 20 18 16 B/P (MAP) 123/58 (79) 141/60 (87) 133/60 (84) Pulse Ox 97 91 97 O2 Delivery Nasal Cannula Nasal Cannula Nasal Cannula O2 Flow Rate 2.0 2.0 2.0 Intake and Output 07/18/18 07/18/18 07/19/18 15:01 23:01 07:01 Intake Total 720 ml 420 ml 460 ml Output Total 300 ml Balance 720 ml 420 ml 160 ml APRIL MEZA III DO Jul 19, 2018 12:17
--- NOTE | 2018-07-19 12:19 | PDOC ---
DHEERAJ MARTIN GINSENG FARMER 07/19/18 1219: SURGICAL PROGRESS NOTE Subjective some of the food she does not like no abdominal pain + stools Vital Signs Vital Signs Date Time Temp Pulse Resp B/P (MAP) Pulse Ox O2 Delivery O2 Flow Rate FiO2 07/19/18 11:08 98.1 83 16 133/60 (84) 97 Nasal Cannula 2.0 98.1 I&O Intake and Output 07/19/18 07:01 Intake Total 1600 ml Output Total 300 ml Balance 1300 ml Intake Oral 1600 ml Output Urine Total 300 ml # Voids 8 # Bowel Movements 4 General: Alert, Oriented X3, Cooperative, No acute distress Abdomen: Soft, No tenderness Problem List Problems Medical Problems: (1) Small bowel obstruction Status: Acute Assessment/Plan will sign off, available as needed WINSTON REYEZ MD 07/20/18 1422: SURGICAL PROGRESS NOTE Assessment/Plan LATE ENTRY saw pt 2/4 up to commode no new complaints plans to go home today f/u prn DHEERAJ MARTIN GINSENG FARMER Jul 19, 2018 12:19 WINSTON REYEZ MD Jul 20, 2018 14:22
--- NOTE | 2018-07-19 13:33 | NUR ---
OXYGEN AT 2 LITERS REMOVED FROM PATIENT TO ASSESS IF O2 SATS WOULD REMAIN NORMAL WITHOUT OXYGEN AT 1230, OXYGEN SATS RECHECKED AT 1300, SATS WERE 91% WHILE SITTING IN RECLINER AND 88% WHEN ASSISTED UP TO THE BATHROOM, WILL PLACE ORDER FOR 6 MIN. WALK.
[2018-07-19 15:00] VITALS: BP 139/66
--- NOTE | 2018-07-19 15:58 | NUR ---
SW following. RN advised pt is needing oxygen for home - 2L at rest, 3L with activity. No script or 6 minute walk paperwork available at this time, script will need a diagnosis qualifying for oxygen. JESSICA faxed face sheet to [employer] to determine if they take pt's insurance. JESSICA faxed updates to [facility]. Pt would like to discharge with [facility]. JESSICA will continue to follow.
--- NOTE | 2018-07-19 16:28 | NUR ---
SW following. [facility] has accepted pt, SW faxed respiratory notes as well as script with dx of Hypoxia. [facility] tank given to pt to discharge home with, advised pt to contact [facility] when she gets home. RN notified. No further SW needs.
--- NOTE | 2018-07-19 16:30 | NUR ---
DISCHARGE INSTRUCTIONS GIVEN, QUESTIONS AND CONCERNS ANSWERED, PATIENT AND DAUGHTER AT THE BEDSIDE VERBALIZED UNDERSTANDING OF DISCHARGE INFORMATION INCLUDING TAKING ALL MEDICATIONS INSTRUCTED AND FOLLOWING UP WITH HER PRIMARY PROVIDER IN 1-2 WEEKS. ALL PERSONAL BELONGINGS SENT WITH PATIENT AT TIME OF DISCHARGE. PATIENT TO LEAVE WITH PERSONAL OXYGEN TANK AT THE BEDSIDE AQUIRED FROM COMPUTER ANIMATOR, PATIENT TO BE SEEN IN THE HOME BY [facility].
--- NOTE | 2018-07-19 17:00 | NUR ---
PATIENT LEAVES THE UNIT PER W/C, ACCOMPANIED BY HER DAUGHTER AND THIS DRUM WORKER, EMOTIONAL SUPPORT GIVEN.
--- NOTE | 2018-07-21 11:11 | DS ---
DATE OF DISCHARGE: 07/19/2018 ADMISSION DIAGNOSES: Bowel obstruction and probable colitis and/or diverticulitis. DISCHARGE DIAGNOSES: Resolving colitis and resolving bowel obstruction. CONSULTS: GI and General Surgery. HOSPITAL COURSE: The patient is a pleasant 87-year-old female presented with a bowel obstruction. She had lower quadrant pain. She had a known history of diverticulitis. We admitted the patient. I gave her empiric IV Flagyl and Levaquin. We did consult the above physicians. Over the next 48 hours, her symptoms improved. We were able to advance her diet. I went ahead and give her scripts for p.o. Flagyl and Levaquin for another week and she is doing well. We are going to discharge. DISPOSITION: Home. ACTIVITY: As tolerated. DIET: Low sodium. MEDICATIONS: Please see the MRAD. TOTAL TIME: 32 minutes. OHL Patricia MEZA DO DR: KAILEY/charley JOB#: [id number] / [id number]
--- NOTE | 2018-07-26 11:48 | DS ---
DATE OF DISCHARGE: 07/19/2018 ADDENDUM ADDITIONAL ASSESSMENT: Hypoxia secondary to asthma. APRIL MEZA DO DR: KAILEY/charley JOB#: [id number] / [id number]
== END 2018-07-19 17:00 | disposition home health service (06) | DRG 683 ==
LOC: ER 22:00 → 5 SOUTH 07-16 00:52
PROVIDERS: ADMIT Internal Medicine; ATTEND Internal Medicine
DX: N17.9 Acute kidney failure, unspecified (principal); K56.50 Intestinal adhesions [bands], unspecified as to partial versus complete obstruction; K52.9 Noninfective gastroenteritis and colitis, unspecified; K21.9 Gastro-esophageal reflux disease without esophagitis; K57.30 Diverticulosis of large intestine without perforation or abscess without bleeding; N20.0 Calculus of kidney; D64.9 Anemia, unspecified; E11.9 Type 2 diabetes mellitus without complications; I10 Essential (primary) hypertension; Z90.710 Acquired absence of both cervix and uterus; G47.00 Insomnia, unspecified; F32.9 Major depressive disorder, single episode, unspecified; E03.9 Hypothyroidism, unspecified; E78.5 Hyperlipidemia, unspecified; F41.9 Anxiety disorder, unspecified; Z82.49 Family history of ischemic heart disease and other diseases of the circulatory system; M19.90 Unspecified osteoarthritis, unspecified site; Z88.8 Allergy status to other drugs, medicaments and biological substances; Z79.899 Other long term (current) drug therapy
CPT/HCPCS: 36415; 43752; 74018; 74022; 74176; 80048; 80053; 81001; 85007; 85025; 87641; 94618; 96361; 96374; 96375; J0780; J1956; J2405; J2765; J3490; J7030; 97530; 97535; 99285-25; G0378

== ENCOUNTER → 2018-08-17 | Outpatient (CLI) | payer OTHER ==
[2018-07-19 15:00] VITALS: BP 139/66
[~2018-08-17] MED LIST changes: +ACET500T68 PO; +CLON0.5T11 PO; +FERR325T3 PO; +LEVO100T5 PO; +MELA3TAB2 PO; +MIRT15TA3 PO; +MULT-503 PO; +RANI150T2 PO; +TOLT2CAP PO
--- NOTE | 2018-08-17 16:27 | KCIC ---
EXAM: Bilateral screening mammogram. HISTORY: 87-year-old female presents for screening mammography. TECHNIQUE: Full-field digital craniocaudal and mediolateral oblique views of both breasts are obtained for evaluation. Computer aided detection with [employer] software version 9.3 was applied. COMPARISON: 04/01/2013 BREAST PARENCHYMAL DENSITY: Level B - Scattered fibroglandular densities. FINDINGS: There is no new suspicious mass, microcalcification or region of architectural distortion. There is stable areas of nodularity within both breasts. There are benign calcifications within both breasts. There is a biopsy clip within the left breast at the 1:00 position. IMPRESSION: BI-RADS Category 2: Benign finding(s). RECOMMENDATION: Annual mammography is recommended. If your mammogram demonstrates that you have dense breast tissue, which could hide abnormalities, and if you have other risk factors for breast cancer that have been identified, you might benefit from supplemental screening tests that may be suggested by your ordering physician. Dense breast tissue, in and of itself, is a relatively common condition. This information is not provided to cause undue concern, but rather to raise your awareness and to promote discussion with your physician regarding the presence of other risk factors, in addition to dense breast tissue. A report of your mammography results will be sent to you and your physician. You should contact your physician if you have any questions or concerns regarding this report. Mammography is a sensitive method for finding small breast cancers, but it does not detect them all and is not a substitute for careful clinical examination. A negative mammogram does not negate a clinically suspicious finding and should not result in delay in biopsying a clinically suspicious abnormality. PQRS compliance statement - Patient information was entered into a reminder system with a target due date for the next mammogram. "Our facility is accredited by the [employer] Mammography Program." Electronically signed by: Haven Patterson MD (08/17/2018 4:24 PM) [id number]
== END | disposition home or self-care (01) ==
LOC: KCIC MAMMO 12:08
PROVIDERS: ATTEND Family Medicine
DX: Z12.31 Encounter for screening mammogram for malignant neoplasm of breast (principal)
CPT/HCPCS: 77067

== ENCOUNTER → 2020-10-15 | Outpatient (CLI) | payer OTHER ==
[2019-08-20 11:00] VITALS: BP 128/57
[~2020-10-15] MED LIST changes: +BARIUM SULFATE 340 GM SUSPENSION. PO ONE; +BARIUM SULFATE 60% 355 ML SUSP PO ONE; +BARIUM SULFATE 700 MG TABLET PO ONE; -CLOB15CR2 TP; +CLOB15CR27 TP; +CLON-77 PO; -CLON0.5T11 PO; -CLON1TAB11 PO; +CLONAZEPAM1 MG PO; +FAMO20TA5; +FLUO20CA20 PO; -FLUO20CA8 PO; -LEVO112T4 PO; +LEVO112T49 PO; +LISI1TAB20 PO; -LISI1TAB7 PO; +MECL-75 PO; -MECL12.52 PO; +MECL12.582 PO; -MELA3TAB2 PO; +MELA3TAB4 PO; +MENT118G TP; +NYST15CR; +SIMETHICONE/SOD BICARB/CITRIC ACID PACKET. PO ONE
--- NOTE | 2020-10-15 17:06 | RAD ---
CLINICAL INDICATION: Reason: HIATAL HERNIA 1.20MIN FLUORO / Spl. Instructions: / History: COMPARISON: None. TECHNIQUE: The patient was given barium and images of the esophagus, stomach, duodenum, and proximal mesenteric bowel radiographs were obtained under fluoroscopic guidance. FINDINGS: A supervisor engine repair view shows no free intraperitoneal gas. Large hiatal hernia. Swallowing is normal resulting in no aspiration of contrast. The esophagus is normal in caliber. Es ophageal motility is abnormal and emptying of contrast from the esophagus is delayed. Numerous tertia ry contractions of the esophagus are seen. Large hiatal hernia, the majority of the stomach is within the thoracic cavity. Contrast empties promptly into the duodenum. The duodenum is normal in caliber. No obstruction in t he duodenum. Gastroesophageal reflux to the upper thoracic esophagus. IMPRESSION: Gastroesophageal reflux. There is a large hiatal hernia with majority of stomach in the thoracic cavity. Abnormal esophageal motility with tertiary contractions and delayed transit of contrast through the e sophagus. Electronically signed by: Ganga Stahl MD (10/15/2020 5:03 PM) [id number]
== END ==
LOC: RAD 11:12
PROVIDERS: ATTEND Internal Medicine Gastroenterology
DX: K44.9 Diaphragmatic hernia without obstruction or gangrene (principal); K21.9 Gastro-esophageal reflux disease without esophagitis
CPT/HCPCS: 74246